=== PATIENT | male | born 1940 | race Caucasian/White ===

== ENCOUNTER → 2016-11-29 | Day surgery (SDC) | payer MEDICARE ==
[~2016-11-29] MED LIST: ASPI1TAB69 PO; ASPI81 PO; BUPIVACAINE/EPINEPHRINE 0.25% 50 ML VIAL ONE; CIPR500T2 PO; DICLOFENAC SODIUM 37.5 MG/ML VIAL IV PUSH ONE; GLIP5 PO; GLUCTAB PO; LACTATED RINGER'S 1000 ML INJ 1,000 ML ONE; LEVO125T4 PO; LEVO175T2 PO; LOVA20TA PO; METF500T4 PO; METO50TA PO; ONDANSETRON HCL 4 MG/2 ML VIAL IV PUSH ONE; PROPOFOL 200 MG/20 ML AMP IV ONE; TAMS0.4C4 PO; TAMS0.4C67 PO; ceFAZolin 2 GM PREMIX 50 ML ONE
--- NOTE | 2016-11-29 10:38 | TN ---
cc: THERESE ALLEN M.D. DATE OF SURGERY: 11/29/2016 PREOPERATIVE DIAGNOSIS Left indirect inguinal hernia. POSTOPERATIVE DIAGNOSIS 1. Left indirect inguinal hernia. 2. Incarcerated colon. 3. Spermatic cord lipoma. PROCEDURE 1. Open repair left inguinal hernia with mesh. 2. Excision spermatic cord lipoma. SURGEON Dr. Therese Allen KNIFE CUTTER Peg Blanchard, FORMULATOR ANESTHESIA General. INDICATIONS This is a very pleasant 76-year-old gentleman who has a longstanding large left inguinal hernia. It creates pain intermittently. 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 A CT scan demonstrated a large left inguinal hernia including colon. INTRAOPERATIVE FINDINGS Large spermatic cord lipoma. Large thickened and chronic indirect inguinal hernia sac involving the colon. The colon had to be mobilized out of the sac to reduce it and a pursestring suture was placed at the base of the hernia sac and redundant sac amputated. Spermatic cord lipoma hernia sac discarded. ESTIMATED BLOOD LOSS Less than 20 mL. This procedure was assisted by my nurse practitioner. The skill set of an FORMULATOR was medically necessary to provide appropriate visualization of the operative field and improved efficiency in the progress of the surgical procedure. The surgical aides teacher was at the back table providing appropriate instrumentation while the nurse practitioner was directly assisting me through the entirety of the procedure. DESCRIPTION OF PROCEDURE IN DETAIL The patient was identified as Derick Lin, taken to the operating room and placed in supine position. Sequential compression devices were placed on bilateral lower extremities. Following induction of adequate general anesthesia the patient's left groin was prepped and draped in the usual sterile fashion with Betadine. A timeout procedure was performed. Following completion of the timeout procedure to everyone's satisfaction within the room, a proposed left groin incision was made with a marking pen and infiltrated with local anesthetic. The incision was carried out with a scalpel and hemostasis controlled with electrocautery. Dissection continued posteriorly through Telly's fascia to the level of the external oblique fascia. More local anesthetic was placed beneath the external oblique fascial fibers. They were opened in their direction using a scalpel and Metzenbaum scissor. Underlying ilioinguinal and iliohypogastric nerves were avoided after identifying them. The spermatic cord and its contents were from surrounding tissues to the level of the pubic tubercle and isolated with a [place] drain. A large chronic indirect inguinal hernia sac and a chronically incarcerated spermatic cord lipoma were reduced from the spermatic cord structures. The spermatic cord lipoma at its base was clamped with two separate clamps and redundant tissue amputated with electrocautery. The base of the spermatic cord lipoma was suture ligated with 2-0 Vicryl suture ligatures. The hernia sac was then opened, incarcerated colon was identified. It was carefully reduced down back into the peritoneal cavity. Small bleeding points were controlled with cautery and at one point a 3-0 Vicryl suture ligature was used to control a small amount of bleeding. The colon was uninjured. The bottom of the hernia sac was pursestring suture ligated with 2-0 Vicryl suture ligature and redundant sac amputated and discarded. The wound was irrigated copiously with saline. There was no evidence of bleeding. The inguinal floor was reinforced with a piece of Atrium ProLite mesh which was cut from a 3 x 6 inch piece, customized in size and sutured into position with multiple interrupted 0 Ethibond sutures. Sutures were placed above and below the pubic tubercle into Cecilio's ligament and the shelving edge of the inguinal ligament inferiorly and laterally and into the internal oblique fascia superiorly and medially. Specific care was taken to avoid a iliohypogastric nerve branch superiorly. A slit was cut into the mesh laterally to allow for passage of the spermatic cord which was allowed to pass through the mesh and the mesh tails were tucked beneath the external oblique fascia. A single Ethibond suture was placed to approximate the tails lateral to the spermatic cord. The wound was irrigated with saline. There was no evidence of bleeding. Local anesthetic was placed in the operative field. The external oblique fascia was closed using running 3-0 Vicryl suture taking care to avoid underlying nerve branches. Single 2-0 Vicryl was placed in Telly's fascia and skin was approximated with running 4-0 Monocryl subcuticular suture. Dressings were applied with Mastisol, half-inch brown Steri-Strips, gauze and Tegaderm. The patient tolerated the procedure without apparent complication. Sponge, needle and instrument counts were correct at the end of the case. MD FLORY Velázquez/AUNDREA /9:11 AM /10:24 AM
== END | disposition home or self-care (01) ==
LOC: ESDC 06:27
PROVIDERS: ATTEND Surgery Trauma Surgery
DX: K40.90 Unilateral inguinal hernia, without obstruction or gangrene, not specified as recurrent (principal); D17.6 Benign lipomatous neoplasm of spermatic cord
CPT/HCPCS: 00830; 49505; 55520; C1781; J0690; J1130; J2405; J3010; J7120

== ENCOUNTER 2016-12-15 20:55 | Emergency (ER) | payer MEDICARE ==
[~2016-12-15] VITALS: Ht 170.2 cm; Wt 64.8 kg
[~2016-12-15 20:55] MED LIST changes: -ASPI1TAB69 PO; -BUPIVACAINE/EPINEPHRINE 0.25% 50 ML VIAL ONE; -CIPR500T2 PO; -DICLOFENAC SODIUM 37.5 MG/ML VIAL IV PUSH ONE; -LACTATED RINGER'S 1000 ML INJ 1,000 ML ONE; -LEVO125T4 PO; -METF500T4 PO; -ONDANSETRON HCL 4 MG/2 ML VIAL IV PUSH ONE; -PROPOFOL 200 MG/20 ML AMP IV ONE; -TAMS0.4C4 PO; -ceFAZolin 2 GM PREMIX 50 ML ONE
[2016-12-15 21:12] VITALS: BP 159/74; PULSE 70; RESP 16; TEMP 98.6; O2SAT 98
[2016-12-15 22:25] LABS: GLUCOSE,URINE NEG (NEG); KETONE, URINE TRACE mg/dL (NEG); NITRITE,URINE NEG (NEG)
[2016-12-15 22:43] LABS: BLOOD, URINE MOD (NEG)
[2016-12-15 22:44] LABS: MUCUS URINE MANY /lpf (OCC); URINE COLOR YELLOW (YELLW/STRAW)
[2016-12-15 22:45] LABS: SQUAMOUS EPITHELIAL CELL URINE 0-5 /hpf (0-5)
[2016-12-15 22:46] LABS: BACTERIA, URINE RARE /hpf; COMMENT (UR) CULTURE INDICATED; CULTURE IF INDICATED CULTURE INDICATED
[2016-12-15] MEDS ORDERED: METF500T4 PO (23:49)
[2016-12-15] MEDS ORDERED: ASPI1TAB69 PO (23:49)
[2016-12-15] MEDS ORDERED: TAMS0.4C4 PO (23:49)
[2016-12-15] MEDS ORDERED: METO50TA PO (23:49)
[2016-12-15] MEDS ORDERED: LEVO125T4 PO (23:49)
[2016-12-15] MEDS ORDERED: LOVA20TA PO (23:49)
[2016-12-16 00:20] VITALS: BP 152/74; PULSE 78; RESP 18; O2SAT 96
[2016-12-16] MEDS ORDERED: CIPR500T2 PO (00:37)
--- NOTE | 2016-12-16 00:38 | PD ---
HPI Chief Complaint: Complaint Time Seen by Provider: 23:42 Travel History International Travel<30 days: No Contact w/Intl Traveler<30days: No Traveled to known affect area: No History of Present Illness HPI Patient is a 76-year-old male presents emergency Department with suprapubic discomfort. Patient states approximate 2 weeks ago he had a hernia repair in his left inguinal region by Dr. Peres. Patient states she's been doing fairly well afterwards no fevers no diarrhea no blood in the stool tolerating oral well. He does relate a history of weight loss currently and has been worked up by his primary care physician with MRI and CAT scan and no cause to his weight loss has been determined. It was at this workup the patient was discovered to have a strangulated hernia and that is why he had repair. Patient also relates a history of unable to urinate for the past day. He states she's had a dribble alone but it davis when he urinates. Denies any fever. Denies any nausea or vomiting chest pain shortness of breath or extremity pain. PFSH Past Medical History Hx Anticoagulant Therapy: Yes (81 MG ASA) Arthritis: Yes Asthma: No Blood Disorders: No Heart Rhythm Problems: No Cancer: No Cardiac Catheterization: No Cardiovascular Problems: No High Cholesterol: Yes Chest Pain: No Congestive Heart Failure: No COPD: No Cerebrovascular Accident: No Diabetes: Yes Patient Takes Glucophage: Yes Diminished Hearing: No Endocrine: Yes GERD: No Genitourinary: Yes (BPH) Headaches: No Hepatitis: No Hiatal Hernia: No Hypertension: Yes Immune Disorder: No Inguinal Hernia: Yes (l hernia repair on nov 29 2016) Kidney Stones: No Musculoskeletal: Yes (ARTHRITIS, SP. STENOSIS) Neurologic: No Psychiatric: No Reproductive: No Respiratory: No Immunizations Current: Yes Migraines: No Myocardial Infarction: No Renal Failure: No Seizures: No Sleep Apnea: No Thyroid Disease: Yes (NODULES REM'D) Ulcer: No Tetanus Vaccination: > 5 Years Influenza Vaccination: No Past Surgical History Abdominal Surgery: No AICD: No Appendectomy: No Cardiac Surgery: No Cholecystectomy: No Coronary Artery Bypass Graft: No Ear Surgery: No Endocrine Surgery: Yes (THYROIDECTOMY) Eye Surgery: No Genitourinary Surgery: No Gynecologic Surgery: No Joint Replacement: Yes (LEFT KNEE) Oral Surgery: No Pacemaker: No Thoracic Surgery: No Other Surgery: Yes Social History Alcohol Use: Yes (occ) Tobacco Use: No Substance Use: No Allergies-Medications (Allergen,Severity, Reaction): Coded Allergies: No Known Allergies (Verified , 12/15/16) Reported Meds & Prescriptions Reported Meds & Active Scripts Active Ciprofloxacin (Ciprofloxacin HCl) 500 Mg Tab 500 Mg PO BID 7 Days Reported Metoprolol Tartrate 50 Mg Tab 50 Mg PO BID Metformin ER (Metformin HCl) 500 Mg Sabrina 500 Mg PO DAILY With evening meal Tamsulosin (Tamsulosin HCl) 0.4 Mg Cap 0.4 Mg PO HS Levothyroxine (Levothyroxine Sodium) 125 Mcg Tab 125 Mcg PO DAILY Lovastatin 20 Mg Tab 20 Mg PO HS Aspirin 81 Mg Tabdr 81 Mg PO DAILY Review of Systems Except as stated in HPI: all other systems reviewed are Neg Physical Exam Narrative GENERAL: [Well-developed well-nourished, no apparent distress SKIN: Focused skin assessment warm/dry. HEAD: Atraumatic. Normocephalic. EYES: Pupils equal and round. No scleral icterus. No injection or drainage. ENT: No nasal bleeding or discharge. Mucous membranes pink and moist. Extremely poor dentition NECK: Trachea midline. No JVD. CARDIOVASCULAR: Regular rate and rhythm. No murmur appreciated. RESPIRATORY: No accessory muscle use. Clear to auscultation. Breath sounds equal bilaterally. GASTROINTESTINAL: Abdomen soft, minimal suprapubic tenderness, suprapubic distention. Hepatic and splenic margins not palpable. MUSCULOSKELETAL: No obvious deformities. No clubbing. No cyanosis. No edema. NEUROLOGICAL: Awake and alert. No obvious cranial nerve deficits. Motor grossly within normal limits. Normal speech. PSYCHIATRIC: Appropriate mood and affect; insight and judgment normal. Data Data Last Documented VS Vital Signs Date Time Temp Pulse Resp B/P Pulse Ox O2 Delivery O2 Flow Rate FiO2 12/16/16 02:02 64 18 126/52 97 12/16/16 00:20 Room Air 12/15/16 21:12 98.6 Orders Urinalysis - C+S If Indicated (12/15/16 21:04) Urine Culture (12/15/16 22:16) Ed Poc Ultrasound (12/15/16 ) Basic Metabolic Panel (Bmp) (12/15/16 23:51) Ciprofloxacin (Cipro) (12/16/16 01:00) Bag, Leg 32oz Sterile Large Ea (12/16/16 00:52) Urinary Catheter Insert/Apply (12/16/16 01:23) Labs Laboratory Tests Test 12/15/16 12/16/16 22:16 00:04 Urine Color YELLOW Urine Turbidity CLEAR Urine pH 6.0 Urine Specific [place] 1.020 Urine Protein TRACE mg/dL Urine Glucose (UA) NEG mg/dL Urine Ketones TRACE mg/dL Urine Occult Blood MOD Urine Nitrite NEG Urine Bilirubin NEG Urine Leukocyte Esterase TRACE Urine RBC 4-9 /hpf Urine WBC 20-24 /hpf Urine WBC Clumps FEW Urine Squamous Epithelial 0-5 /hpf Cells Urine Bacteria RARE /hpf Urine Mucus MANY /lpf Microscopic Urinalysis Comment CULTURE INDICATED Sodium Level 137 MEQ/L Potassium Level 4.0 MEQ/L Chloride Level 102 MEQ/L Carbon Dioxide Level 27.6 MEQ/L Anion Gap 7 MEQ/L Blood Urea Nitrogen 19 MG/DL Creatinine 0.76 MG/DL Estimat Glomerular Filtration 100 ML/MIN Rate Random Glucose 164 MG/DL Calcium Level 8.7 MG/DL MDM Medical Decision Making Medical Screen Exam Complete: Yes Emergency Medical Condition: Yes Differential Diagnosis Acute urinary retention, acute kidney injury, urinary tract infection. Narrative Course Patient was roomed in the emergency department, bedside ultrasound confirms urinary retention. A Morfin catheter was placed by nursing and immediately had a liter of urine out. The urine was clear. Fully catheter was clamped to help to prevent bladder spasm. The patient instantly felt better after this liter of urine was drained. UA does show evidence for urinary tract infection. A BMP was sent and shows a creatinine which is within normal limits. Discussed the patient symptomatically management need follow-up with a urologist. He will be discharged with leg bag in place. Recommend follow-up with urologist within a week. Also recommended following up with his primary care physician. He is stable for discharge at this time. Procedures Procedure Narrative Bedside ultrasound: Bedside ultrasound views were obtained of the bladder which shows just over a liter of urine in the bladder. No other gross abnormalities. Diagnosis Primary Impression: Urinary retention Additional Impression: Urinary tract infection Referrals: Fawad Ruth DO Med/Other Pt SpecificInfo: Prescription(s) given Scripts Ciprofloxacin 500 Mg [id number] Mg PO BID 7 Days Ref 0 Prov:Fabrice Atkins MD 12/16/16 Disposition: 01 DISCHARGE HOME Condition: Stable Fabrice Atkins MD Dec 16, 2016 00:37
[2016-12-16 00:41] LABS: BICARBONATE 27.6 MEQ/L (21.0-32.0)
[2016-12-16] MEDS ORDERED: CIPROFLOXACIN 500 MG TAB PO ONE (01:00)
[2016-12-16 02:02] VITALS: BP 126/52
== END 2016-12-16 02:03 | disposition home or self-care (01) ==
LOC: PHED 20:55
DX: R33.9 Retention of urine, unspecified (principal); N39.0 Urinary tract infection, site not specified; R30.0 Dysuria; I10 Essential (primary) hypertension; E11.9 Type 2 diabetes mellitus without complications; E07.9 Disorder of thyroid, unspecified; E78.00 Pure hypercholesterolemia, unspecified; Z98.890 Other specified postprocedural states; Z79.82 Long term (current) use of aspirin; Z79.84 Long term (current) use of oral hypoglycemic drugs; Z87.39 Personal history of other diseases of the musculoskeletal system and connective tissue; Z87.438 Personal history of other diseases of male genital organs
CPT/HCPCS: 51702; 80048; 81001; 87086

== ENCOUNTER 2016-12-31 19:44 | Emergency (ER) | payer MEDICARE ==
[~2016-12-31] VITALS: Ht 170.2 cm; Wt 64.4 kg
[~2016-12-31 19:44] MED LIST changes: +ASPI1TAB69 PO; -ASPI81 PO; +CIPR500T2 PO; -GLIP5 PO; -GLUCTAB PO; +LEVO125T4 PO; -LEVO175T2 PO; +METF500T4 PO; +TAMS0.4C4 PO; -TAMS0.4C67 PO
[2016-12-31 19:57] VITALS: BP 122/50; PULSE 53; RESP 16; TEMP 98.2; O2SAT 100
--- NOTE | 2016-12-31 20:18 | PD ---
HPI Chief Complaint: Complaint Time Seen by Provider: 20:15 Travel History International Travel<30 days: No Contact w/Intl Traveler<30days: No Traveled to known affect area: No History of Present Illness HPI This 76-year-old male is complaining of hematuria. He has a history of urinary retention. He was here on December 15 with urinary retention. He was discharged with an indwelling Morfin. He has followed up with Dr. Coffey. This catheter has been removed and his is instructed in how to catheterize him. She noted some blood in the urine earlier today. Tonight he had some trouble urinating and had blood again. He is not on any blood thinner. He does take aspirin daily. He is scheduled for a cystoscopy next week PFS Past Medical History Hx Anticoagulant Therapy: Yes (81 MG ASA) Arthritis: Yes Asthma: No Blood Disorders: No Heart Rhythm Problems: No Cancer: No Cardiac Catheterization: No Cardiovascular Problems: No High Cholesterol: Yes Chest Pain: No Congestive Heart Failure: No COPD: No Cerebrovascular Accident: No Diabetes: Yes Diminished Hearing: No Endocrine: Yes GERD: No Genitourinary: Yes (BPH) Headaches: No Hepatitis: No Hiatal Hernia: No Hypertension: Yes Immune Disorder: No Inguinal Hernia: Yes (l hernia repair on nov 29 2016) Kidney Stones: No Musculoskeletal: Yes (ARTHRITIS, SP. STENOSIS) Neurologic: No Psychiatric: No Reproductive: No Respiratory: No Immunizations Current: Yes Migraines: No Myocardial Infarction: No Renal Failure: No Seizures: No Sleep Apnea: No Thyroid Disease: Yes (NODULES REM'D) Ulcer: No Past Surgical History Abdominal Surgery: No AICD: No Appendectomy: No Cardiac Surgery: No Cholecystectomy: No Coronary Artery Bypass Graft: No Ear Surgery: No Endocrine Surgery: Yes (THYROIDECTOMY) Eye Surgery: No Genitourinary Surgery: No Gynecologic Surgery: No Joint Replacement: Yes (LEFT KNEE) Oral Surgery: No Pacemaker: No Thoracic Surgery: No Other Surgery: Yes Social History Alcohol Use: Yes (occ) Tobacco Use: No Substance Use: No Allergies-Medications (Allergen,Severity, Reaction): Coded Allergies: No Known Allergies (Verified , 12/31/16) Reported Meds & Prescriptions Reported Meds & Active Scripts Active Reported Metoprolol Tartrate 50 Mg Tab 50 Mg PO BID Metformin ER (Metformin HCl) 500 Mg Sabrina 500 Mg PO DAILY With evening meal Tamsulosin (Tamsulosin HCl) 0.4 Mg Cap 0.4 Mg PO HS Levothyroxine (Levothyroxine Sodium) 125 Mcg Tab 125 Mcg PO DAILY Lovastatin 20 Mg Tab 20 Mg PO HS Aspirin 81 Mg Tabdr 81 Mg PO DAILY Review of Systems General / Constitutional: No: Fever, Chills Eyes: No: Diploplia, Blurred Vision HENT: No: Headaches, Vertigo Cardiovascular: No: Chest Pain or Discomfort Respiratory: No: Cough, Shortness of Breath Gastrointestinal: No: Vomiting, Diarrhea Genitourinary: Positive: Frequency, Hematuria, Dribbling Physical Exam Narrative GENERAL: Well-developed male SKIN: Focused skin assessment warm/dry. HEAD: Atraumatic. Normocephalic. EYES: Pupils equal and round. No scleral icterus. No injection or drainage. ENT: No nasal bleeding or discharge. Mucous membranes pink and moist. NECK: Trachea midline. No JVD. CARDIOVASCULAR: Regular rate and rhythm. No murmur appreciated. RESPIRATORY: No accessory muscle use. Clear to auscultation. Breath sounds equal bilaterally. GASTROINTESTINAL: Abdomen soft, non-tender, nondistended. Hepatic and splenic margins not palpable. There is some suprapubic fullness MUSCULOSKELETAL: No obvious deformities. No clubbing. No cyanosis. No edema. NEUROLOGICAL: Awake and alert. No obvious cranial nerve deficits. Motor grossly within normal limits. Normal speech. PSYCHIATRIC: Appropriate mood and affect; insight and judgment normal. Data Data Last Documented VS Vital Signs Date Time Temp Pulse Resp B/P Pulse Ox O2 Delivery O2 Flow Rate FiO2 12/31/16 21:34 50 18 126/61 99 Room Air 12/31/16 19:57 98.2 Orders Urinalysis - C+S If Indicated (12/31/16 20:15) Cath For Specimen (12/31/16 20:15) Urine Culture (12/31/16 20:30) Complete Blood Count With Diff (12/31/16 20:59) Basic Metabolic Panel (Bmp) (12/31/16 20:59) Prothrombin Time / Inr (Pt) (12/31/16 20:59) Act Partial Throm Time (Ptt) (12/31/16 20:59) Labs Laboratory Tests Test 12/31/16 12/31/16 20:30 21:10 Urine Color RED Urine Turbidity MARKED Urine pH 6.5 Urine Specific [place] 1.014 Urine Protein 300 OR GREATER mg/dL Urine Glucose (UA) NEG mg/dL Urine Ketones TRACE mg/dL Urine Occult Blood LARGE Urine Nitrite POS Urine Bilirubin NEG Urine Leukocyte Esterase TRACE Urine RBC INNUM /hpf Urine WBC 3-5 /hpf Microscopic Urinalysis Comment CULTURE INDICATED White Blood Count 7.3 TH/MM3 Red Blood Count 3.66 MIL/MM3 Hemoglobin 10.9 GM/DL Hematocrit 32.4 % Mean Corpuscular Volume 88.7 FL Mean Corpuscular Hemoglobin 29.8 PG Mean Corpuscular Hemoglobin 33.6 % Concent Red Cell Distribution Width 13.5 % Platelet Count 204 TH/MM3 Mean Platelet Volume 7.9 FL Neutrophils (%) (Auto) 57.8 % Lymphocytes (%) (Auto) 23.8 % Monocytes (%) (Auto) 13.6 % Eosinophils (%) (Auto) 4.2 % Basophils (%) (Auto) 0.6 % Neutrophils # (Auto) 4.3 TH/MM3 Lymphocytes # (Auto) 1.7 TH/MM3 Monocytes # (Auto) 1.0 TH/MM3 Eosinophils # (Auto) 0.3 TH/MM3 Basophils # (Auto) 0.0 TH/MM3 CBC Comment DIFF FINAL Differential Comment Sodium Level 141 MEQ/L Potassium Level 3.9 MEQ/L Chloride Level 105 MEQ/L Carbon Dioxide Level 30.0 MEQ/L Anion Gap 6 MEQ/L Blood Urea Nitrogen 26 MG/DL Creatinine 0.98 MG/DL Estimat Glomerular Filtration 74 ML/MIN Rate Random Glucose 97 MG/DL Calcium Level 8.5 MG/DL MDM Medical Decision Making Medical Screen Exam Complete: Yes Emergency Medical Condition: Yes Medical Record Reviewed: Yes Differential Diagnosis Differential includes hematuria, anemia, urinary retention Narrative Course Catheter was inserted and there is a large amount of urine which is bloody. There are only 3 white cells in the urine. His hemoglobin is 10.9. He is stable for discharge. I recommend that we leave the catheter in and would not do the intermittent catheterization that may have contributed to the hematuria. He is to follow-up with Diagnosis Primary Impression: Hematuria Additional Impression: Urinary retention Referrals: Ted Coffey MD Disposition: 01 DISCHARGE HOME Condition: Stable Ryan Myers MD December 31, 2016 20:17
[2016-12-31 20:49] LABS: BLOOD, URINE LARGE (NEG); GLUCOSE,URINE NEG (NEG); KETONE, URINE TRACE mg/dL (NEG); PH, URINE 6.5 (5.0-8.5)
[2016-12-31 20:52] LABS: NITRITE,URINE POS (NEG); URINE COLOR RED (YELLW/STRAW)
[2016-12-31 20:53] LABS: COMMENT (UR) CULTURE INDICATED; CULTURE IF INDICATED CULTURE INDICATED; RBC, URINE INNUM /hpf (0-3)
[2016-12-31 21:16] LABS: AUTOMATED NEUTROPHIL # 4.3 TH/MM3 (1.8-7.7); BASOPHIL % 0.6 % (0.0-2.0); EOSINOPHIL # 0.3 TH/MM3 (0-0.4); EOSINOPHIL % 4.2 % (0.0-4.0); HEMATOCRIT 32.4 % (39.0-51.0); HEMO FLAGS DIFF FINAL; LYMPH % 23.8 % (9.0-44.0); LYMPHOCYTE # 1.7 TH/MM3 (1.0-4.8); MEAN CELL VOLUME 88.7 FL (80.0-100.0); MEAN CORPUSCULAR HEMOGLOBIN 29.8 PG (27.0-34.0); MEAN CORPUSCULAR HGB CONC 33.6 % (32.0-36.0); MONO % 13.6 % (0.0-8.0); NEUT % 57.8 % (16.0-70.0); PLATELET COUNT 204 TH/MM3 (150-450); RED BLOOD COUNT 3.66 MIL/MM3 (4.50-5.90); RED CELL DISTRIBUTION WIDTH 13.5 % (11.6-17.2); WHITE BLOOD COUNT 7.3 TH/MM3 (4.0-11.0)
[2016-12-31 21:32] LABS: POTASSIUM 3.9 MEQ/L (3.5-5.1)
[2016-12-31 21:34] VITALS: BP 126/61; PULSE 50; RESP 18; O2SAT 99
[2016-12-31 22:07] LABS: APTT (PATIENT) 28.2 SEC (24.3-30.1); PROTHROMBIN TIME - PATIENT 11.6 SEC (9.8-11.6)
== END 2016-12-31 22:12 | disposition home or self-care (01) ==
LOC: PHED 19:44
DX: R31.9 Hematuria, unspecified (principal); R33.9 Retention of urine, unspecified; B95.7 Other staphylococcus as the cause of diseases classified elsewhere; E11.9 Type 2 diabetes mellitus without complications; E07.9 Disorder of thyroid, unspecified; I10 Essential (primary) hypertension; E78.00 Pure hypercholesterolemia, unspecified; Z79.84 Long term (current) use of oral hypoglycemic drugs; Z79.82 Long term (current) use of aspirin; Z87.39 Personal history of other diseases of the musculoskeletal system and connective tissue; Z87.438 Personal history of other diseases of male genital organs
CPT/HCPCS: 80048; 81001; 85025; 85610; 85730; 86403; 87077; 87086; 87186; 99283; P9612

== ENCOUNTER 2018-07-13 09:21 | Inpatient (IN) ==
[2018-07-13] MEDS ORDERED: Acetaminophen 325 MG Tablet PO ONE (09:59)
--- NOTE | 2018-07-13 09:59 | ED ---
HPI General Chief Complaint: Altered Mental Status Stated Complaint: AMS Time Seen by Provider: 07/13/18 09:36 Source: patient Mode of arrival: EMS Limitations: no limitations and altered mental status History of Present Illness HPI narrative: Patient is a 78-year-old male who presents the emergency room for evaluation of altered mental status. As per EMS, they woke up this morning around 4- 5 AM and patient was not acting like his normal self. Reports concerns as normally he is ambulatory with a cane, reports that this morning, he was not able to ambulate. reported that patient appeared confused so she called for help. Patient currently with no neurological deficits, patient is alert only to person -patient is unsure why he is in the emergency room. Patient with no complaints in the emergency room. Patient denies any headache or dizziness, denies any chest pain or shortness of breath, denies any abdominal pain, denies any nausea or vomiting. Related Data Allergies Allergy/AdvReac Type Severity Reaction Status Date / Time No Known Allergies Allergy Uncoded 12/31/16 20:11 Review of Systems ROS: all other systems reviewed are negative PMFSH History History Provided By: Field Marketing Coordinator / EMT Medical History Medical History CHF (congestive heart failure) (Acute) Diabetes (Acute) High cholesterol (Acute) Hypertension (Acute) Left bundle branch block (LBBB) (Acute) Suprapubic catheter (Acute) Thyroid disease (Acute) Social History Social History Substance History: No History of Abuse Smoking Status: Former smoker Tobacco Type: Cigarettes How Often Do You Have a Drink Containing Alcohol: Never Exam Narrative Exam Narrative: GENERAL: Moderate distressed, confused SKIN: Focused skin assessment warm/dry. Pale appearing HEAD: Atraumatic. Normocephalic. EYES: Pupils equal and round. No scleral icterus. No injection or drainage. ENT: No nasal bleeding or discharge. Mucous membranes pink and moist. NECK: Trachea midline. No JVD. CARDIOVASCULAR: Regular rate and rhythm. No murmur appreciated. RESPIRATORY: No accessory muscle use. Clear to auscultation. Breath sounds equal bilaterally. GASTROINTESTINAL: Abdomen soft, non-tender, nondistended. Hepatic and splenic margins not palpable. Patient has a suprapubic tube in place draining cloudy urine Rectal exam: performed with RN at bedside - patient with dark tarry stools - heme positive MUSCULOSKELETAL: No obvious deformities. No clubbing. No cyanosis. +2 edema b/ l NEUROLOGICAL: Awake and alert. Normal speech. Patient is unable to follow commands for full neurological exam. PSYCHIATRIC: Appropriate mood and affect; insight and judgment normal. Course Initial Documented Vital Signs Temperature 100.8 F H 07/13/18 09:43 Pulse Rate 82 07/13/18 09:43 Respiratory Rate 20 07/13/18 09:43 Blood Pressure 132/61 07/13/18 09:43 Pulse Oximetry 100 07/13/18 09:43 Last Documented Vital Signs Temperature 100.8 F H 07/13/18 09:43 Pulse Rate 82 07/13/18 09:43 Respiratory Rate 20 07/13/18 09:43 Blood Pressure 132/61 07/13/18 09:43 Pulse Oximetry 100 07/13/18 10:22 Critical Care Time Critical Care Time: Yes Total Critical Care Time: 30 Attestation: Aggregate critical care time was 30 minutes. Time to perform other separately billable procedures was not included in the critical care time. My time did not include minutes spent treating any other patients simultaneously or on activities that did not directly contribute to the patient's treatment. The services I provided to this patient were to treat and/or prevent clinically significant deterioration that could result in: , decompensation, deteriortaion I provided critical care services requiring my management, as noted below: Chart data review, documentation time, medication orders and management, vital sign assessments/reviewing monitor data, ordering and reviewing lab tests, ordering and interpreting/reviewing x-rays and diagnostic studies, care of the patient and discussion of the patient with the admitting physicians. Medical Decision Making MDM Narrative Medical decision making narrative: During the course of the patients emergency department visit, the patients history, examination, and differential diagnosis were reviewed with the patient. The patient was placed on a threat monitoring analyst with oximetry and frequent blood pressure monitoring. The patient had an IV access obtained and blood work sent for analysis. The patient was initially provided IV fluids as well as acetaminophen as his temperature is 100.8. The patients laboratory studies were reviewed and remarkable for wbc 21.7, patient is also febrile with a temperature of 100.8. A sepsis workup was initiated. Patient was given vancomycin as well as a dose of Zosyn Patient also with a hemoglobin of 3.7, he is heme positive below with dark tarry stools. reports that patient had a colonoscopy about 4 years ago which showed colon polyps. Understands that patient will require admission to the hospital for workup of GI bleed with SIRS. Plan to start Protonix drip with Protonix bolus. Case reviewed with Dr. Wu who accepts pt to service Medical Screen Exam Complete: Yes Emergency Medical Condition: Yes Medical Records Medical records reviewed: Yes I reviewed the patient's medical records. Lab Data Result diagrams: 07/13/18 10:05 07/13/18 10:05 Lab Results 07/13/18 07/13/18 07/13/18 Range/Units 09:37 10:05 10:05 WBC 21.7 H (4.0-11.0) th/mm3 RBC 1.15 L (4.50-5.90) mil/mm3 Hgb 3.7 L* (13.0-17.0) gm/dL Hct 11.2 L* (39.0-51.0) % MCV 97.2 (80.0-100.0) fL MCH 32.4 (27.0-34.0) pg MCHC 33.3 (32.0-36.0) % RDW 15.0 (11.6-17.2) % Plt Count 283 (150-450) th/mm3 MPV 8.9 (7.0-11.0) fL Prelim Diff (Auto) Slide review pending Neut % (Auto) 87.4 H (16.0-70.0) % Lymph % (Auto) 7.2 L (9.0-44.0) % Bertie % (Auto) 5.3 (0.0-8.0) % Eos % (Auto) 0.0 (0.0-4.0) % Baso % (Auto) 0.1 (0.0-2.0) % Neut # (Auto) 19.0 H (1.8-7.7) th/mm3 Lymph # (Auto) 1.6 (1.0-4.8) th/mm3 Bertie # (Auto) 1.2 H (0.0-0.9) th/mm3 Eos # (Auto) 0.0 (0.0-0.4) th/mm3 Baso # (Auto) 0.0 (0.0-0.2) th/mm3 Differential Comment . PT 12.3 H (9.8-11.6) sec INR 1.2 Ratio APTT 20.5 L (23.4-31.7) sec Sodium (136-145) meq/L Potassium (3.5-5.1) meq/L Chloride (98-107) meq/L Carbon Dioxide (21.0-32.0) meq/L Anion Gap (5-15) meq/L BUN (7-18) mg/dL Creatinine (0.60-1.30) mg/dL Estimated GFR (>89) mL/min POC Glucose 244 H (68-110) mg/dl Random Glucose (74-106) mg/dL Calcium (8.5-10.1) mg/dL Magnesium (1.5-2.5) mg/dL Total Bilirubin (0.2-1.0) mg/dL AST (15-37) U/L ALT (12-78) U/L Alkaline Phosphatase (45-117) U/L Troponin I (0.02-0.05) ng/mL Total Protein (6.4-8.2) g/dL Albumin (3.4-5.0) g/dL MTS Gel Crossmatch 07/13/18 07/13/18 Range/Units 10:05 10:20 WBC (4.0-11.0) th/mm3 RBC (4.50-5.90) mil/mm3 Hgb (13.0-17.0) gm/dL Hct (39.0-51.0) % MCV (80.0-100.0) fL MCH (27.0-34.0) pg MCHC (32.0-36.0) % RDW (11.6-17.2) % Plt Count (150-450) th/mm3 MPV (7.0-11.0) fL Prelim Diff (Auto) Neut % (Auto) (16.0-70.0) % Lymph % (Auto) (9.0-44.0) % Bertie % (Auto) (0.0-8.0) % Eos % (Auto) (0.0-4.0) % Baso % (Auto) (0.0-2.0) % Neut # (Auto) (1.8-7.7) th/mm3 Lymph # (Auto) (1.0-4.8) th/mm3 Bertie # (Auto) (0.0-0.9) th/mm3 Eos # (Auto) (0.0-0.4) th/mm3 Baso # (Auto) (0.0-0.2) th/mm3 Differential Comment PT (9.8-11.6) sec INR Ratio APTT (23.4-31.7) sec Sodium 141 (136-145) meq/L Potassium 4.2 (3.5-5.1) meq/L Chloride 107 (98-107) meq/L Carbon Dioxide 22.9 (21.0-32.0) meq/L Anion Gap 11 (5-15) meq/L BUN 76 H (7-18) mg/dL Creatinine 1.21 (0.60-1.30) mg/dL Estimated GFR 58 L (>89) mL/min POC Glucose (68-110) mg/dl Random Glucose 230 H (74-106) mg/dL Calcium 8.1 L (8.5-10.1) mg/dL Magnesium 2.0 (1.5-2.5) mg/dL Total Bilirubin 0.2 (0.2-1.0) mg/dL AST 13 L (15-37) U/L ALT 14 (12-78) U/L Alkaline Phosphatase 35 L (45-117) U/L Troponin I Less than 0.02 L (0.02-0.05) ng/mL Total Protein 5.8 L (6.4-8.2) g/dL Albumin 2.9 L (3.4-5.0) g/dL MTS Gel Crossmatch See Detail Imaging Data Radiologist's impression: Head CT 07/13/18 09:37 CONCLUSION: 1. No acute intracranial abnormalities seen. 2. Widespread decreased density in the cerebral white matter likely from underlying small vessel ischemic demyelination. . ECG Data EKG Prior to Arrival: No Attestation: I personally reviewed and interpreted this ECG as follows: Interpretation: EKG at 0942 shows normal sinus rhythm at 89 QTQTC 398/445, no acute ST-T wave changes, he does have a left bundle branch block Discharge Plan Discharge Disposition Patient Disposition: 30 Still Patient Discharge Condition Condition: Serious Discharge Details Diagnosis: GI (gastrointestinal bleed), Anemia Physicians Team ED Provider: Prachi White Status ED Status: With Doctor
[2018-07-13 10:22] LABS: Baso % (Auto) 0.1 % (0.0-2.0); Lymph # (Auto) 1.6 th/mm3 (1.0-4.8); Lymph % (Auto) 7.2 % (9.0-44.0); Mean Corpuscular HGB Conc 33.3 % (32.0-36.0); Mean Corpuscular Hemoglobin 32.4 pg (27.0-34.0); Mean Corpuscular Volume 97.2 fL (80.0-100.0); Mean Platelet Volume 8.9 fL (7.0-11.0); Mono # (Auto) 1.2 th/mm3 (0.0-0.9); Mono % (Auto) 5.3 % (0.0-8.0); Neut % (Auto) 87.4 % (16.0-70.0); Platelet Count 283 th/mm3 (150-450); Red Blood Count 1.15 mil/mm3 (4.50-5.90); White Blood Count 21.7 th/mm3 (4.0-11.0)
--- NOTE | 2018-07-13 10:28 | CT ---
EXAM DATE: 07/13/2018 10:22 AM EST AGE/SEX: 78 years / Male INDICATIONS: Altered mental status. CLINICAL DATA: This is the patient's initial encounter. Patient reports that signs and symptoms have been present for 1 day and indicates a pain score of 0/10. MEDICAL/SURGICAL HISTORY: None. None. RADIATION DOSE: 56.35 CTDI (mGy) COMPARISON: No prior exams available for comparison. TECHNIQUE: CT of the head without contrast. Using automated exposure control and adjustment of the mA and/or kV according to patient size, radiation dose was kept as low as reasonably achievable to ob tain optimal diagnostic quality images. DICOM format image data is available electronically for revi ew and comparison. FINDINGS: Cerebrum: The ventricles are normal for age. There is decreased density seen throughout the cerebral white matter. No evidence of midline shift, mass lesion, hemorrhage or acute infarction. No extraax ial fluid collections are seen. Posterior Fossa: The cerebellum and brainstem are intact. The 4th ventricle is midline. The cerebe llopontine angle is unremarkable. Extracranial: The visualized portion of the orbits is intact. Skull: The calvaria is intact. No evidence of skull fracture. CONCLUSION: 1. No acute intracranial abnormalities seen. 2. Widespread decreased density in the cerebral white matter likely from underlying small vessel isc hemic demyelination. . Electronically signed by: Matteo Sheppard MD 07/13/2018 10:26 AM EST
[2018-07-13 10:33] LABS: Hematocrit 11.2 % (39.0-51.0); Hemoglobin 3.7 gm/dL (13.0-17.0)
[2018-07-13] MEDS: Sod Chloride 0.9% Inj 1,000 ML IV.CONT SCH ×4 (10:33→21:32)
[2018-07-13] MEDS ORDERED: Piperacil/Tazo 3.375 GM Premix 50 ML IV.SIG ONE (10:34)
[2018-07-13 10:37] LABS: Activated Partial Thrombo Time 20.5 sec (23.4-31.7); INR 1.2 Ratio; Prothrombin Time 12.3 sec (9.8-11.6)
[2018-07-13] MEDS ORDERED: Pantoprazole Inj 40 MG Vial IV.PUSH ONE (10:42)
[2018-07-13 10:43] LABS: Albumin 2.9 g/dL (3.4-5.0); Anion Gap 11 meq/L (5-15); Aspartate Aminotransferase 13 U/L (15-37); Blood Urea Nitrogen 76 mg/dL (7-18); Calcium 8.1 mg/dL (8.5-10.1); Carbon Dioxide 22.9 meq/L (21.0-32.0); Chloride 107 meq/L (98-107); Glomerular Filtration Rate 58 mL/min (>89); Glucose,Random 230 mg/dL (74-106); Potassium 4.2 meq/L (3.5-5.1); Sodium 141 meq/L (136-145)
[2018-07-13 10:44] LABS: Alanine Aminotransferase 14 U/L (12-78)
[2018-07-13 10:48] LABS: Alkaline Phosphatase 35 U/L (45-117); Total Protein 5.8 g/dL (6.4-8.2)
[2018-07-13] MEDS ORDERED: Acetaminophen 325 MG Tablet PO PRN (11:00)
[2018-07-13] MEDS ORDERED: Bisacodyl 10 MG Supp RECTAL PRN (11:00)
[2018-07-13] MEDS ORDERED: Vancomycin Inj 1,000 MG in Sodium Chlor 0.9% Inj 250 ML IV.SIG SCH (11:00)
[2018-07-13] MEDS ORDERED: Pantoprazole Inj 80 MG in Sodium Chlor 0.9% Inj 100 ML IV.CONT SCH (11:00)
[2018-07-13] MEDS ORDERED: Sodium Chlor 0.9% Inj 250 ML IV.SIG SCH (11:00)
[2018-07-13 11:10] LABS: Bacteria,Urine Many /hpf; Bilirubin,Urine Negative (Negative); Clarity,Urine Hazy (Clear); Color,Urine Yellow (Yellw/Straw); Glucose,Urine (UA) Negative (Negative); Leukocyte Esterase,Urine Moderate (Negative); Mucus,Urine Moderate /lpf (Occasional); Nitrite,Urine Positive (Negative); Specific Gravity,Urine 1.018 (1.002-1.035)
[2018-07-13] MEDS: Sod Chloride 0.9% Inj 1,000 ML IV.SIG SCH ×2 (11:22→12:18)
[2018-07-13] MEDS ORDERED: Dextrose 50% in Water 50 ML Vial IV.PUSH PRN (11:38)
[2018-07-13 12:09] LABS: Reticulocyte Percent 11.3 % (0.4-3.0)
--- NOTE | 2018-07-13 12:14 | P.HP ---
History of Present Illness Service: Hospitalist Primary Care Physician: UNKNOWN Chief Complaint: Altered mental status, weakness, GI bleed History of Present Illness: Mr. Lin is a pleasant 78-year-old male with a history of diabetes mellitus, hypothyroidism, hyperlipidemia and chronic Morfin catheter use who presents to the emergency department due to altered mental status, confusion, generalized weakness. Patient woke up this morning around 4:56 AM and was not behaving like his normal self. He was also very weak. He could not ambulate the way he does using a cane. He was also having trouble picking up simple items. He also had diarrhea for 2 days. Patient's noted very dark stool. ED workup indicated hemoglobin 3.7 on admission. White blood cell count 21.7K, BUN 76, creatinine 1.21. Head CT was unremarkable for any acute findings. Past medical history: Diabetes mellitus, hypothyroidism, hyperlipidemia, benign prostatic hyperplasia, chronic Morfin catheter use Past surgical history: 2 hernia surgery, knee surgery, prostate surgery Social history: Patient does not use any tobacco or alcohol. Family history: No family history of Alzheimer's, Parkinson's, cancer. Inpatient Certification: I certify that the inpatient services were ordered in accordance with Medicare regulations governing the order. This includes certification that hospital inpatient services are reasonable and necessary and in the case of services not specified as inpatient-only under 42 CFR 419.22(n), that they are appropriately provided as inpatient services in accordance to with the 2-midnight benchmark under 43 CFR 412.3(e) Estimated Total Length of Stay (Days): 3 Plans for Post Hospital Care: Not yet determined Review of Systems All other systems reviewed negative except as stated in HPI [facility] - History History Provided By: Slot Tag Inserter / EMT - Medical History Medical History: Medical History (Last Reviewed 07/13/18 @ 12:18 by Shashi Wu DO) CHF (congestive heart failure) Diabetes High cholesterol Hypertension Left bundle branch block (LBBB) Suprapubic catheter Thyroid disease - Tobacco History Smoking Status: Former smoker Tobacco Type: Cigarettes - Alcohol History How Often Do You Have a Drink Containing Alcohol: Never - Substance Use History Substance History: No History of Abuse - Immunization History Tetanus Immunization: Unsure Medications and Allergies Active Medications: Active Medications Acetaminophen (Tylenol) 650 mg PO Q4H PRN PRN Reason: Headache, fever, pain 1-4 Al Hydroxide/Mg Hydroxide (Milk Of Magnesia Liq) 30 ml PO Q12H PRN PRN Reason: Mild Constipation Bisacodyl (Dulcolax Supp) 10 mg RECTAL DAILY PRN PRN Reason: SEVERE CONSITIPATION Dextrose (D50w Vial) 50 ml IV.PUSH UNSCH PRN PRN Reason: PER HYPOGLYCEMIA PROTOCOL Glucagon (Glucagon Inj) 1 mg OTHER PRN PRN PRN Reason: for Hypoglycemia Protocol Sodium Chloride (Ns Inj) 1,000 mls @ 125 mls/hr IV.CONT .Q8H [facility] Last Admin: 07/13/18 10:33 Dose: 125 mls/hr Sodium Chloride (Ns Inj) 250 mls @ 15 mls/hr IV.SIG ONCE [facility] Stop: 07/14/18 03:39 Last Admin: 07/13/18 11:59 Dose: 15 mls/hr Vancomycin HCl 1,000 mg/ (Sodium Chloride) 250 mls @ 250 mls/hr IV.SIG ELECTRICAL CAD TECHNICIAN [facility] Last Admin: 07/13/18 11:20 Dose: 250 mls/hr Pantoprazole Sodium 80 mg/ (Sodium Chloride) 100 mls @ 10 mls/hr IV.CONT CONT [place] Sodium Chloride (Ns Inj) 1,000 mls @ 100 mls/hr IV.CONT .Q10H [facility] Last Admin: 07/13/18 11:19 Dose: Not Given Ceftriaxone Sodium 1,000 mg/ (Sodium Chloride) 100 mls @ 200 mls/hr IV.SIG Q24H [facility] Insulin Aspart (Novolog Insulin Correctional Sugar Inj) 0 unit SQ ACHS [place]A; Protocol Lactulose (Lactulose Liq) 30 ml PO DAILY PRN PRN Reason: SEVERE CONSITIPATION Levothyroxine Sodium (Synthroid) 125 mcg PO DAILY [facility] Metoprolol Tartrate (Lopressor) 50 mg PO BID [facility] Ondansetron HCl (Zofran Inj) 4 mg IV.PUSH Q6H PRN PRN Reason: NAUSEA OR VOMITING Pravastatin Sodium (Pravachol) 20 mg PO DAILY [facility] Sennosides (Senokot) 17.2 mg PO Q12H PRN PRN Reason: Moderate Constipation Sodium Chloride (Ns Flush) 2 ml IV.FLUSH PRN PRN PRN Reason: FLUSH AFTER USING IV ACCESS Allergies Allergy/AdvReac Type Severity Reaction Status Date / Time No Known Allergies Allergy Verified 07/13/18 11:06 Home Medications Medication Instructions Recorded Confirmed Type aspirin [Aspirin Low Dose] 81 mg PO DAILY 07/13/18 07/13/18 History levothyroxine 125 mcg PO DAILY 07/13/18 07/13/18 History lovastatin 20 mg PO DAILY 07/13/18 07/13/18 History metformin 500 mg PO QPM 07/13/18 07/13/18 History metoprolol tartrate 50 mg PO BID 07/13/18 07/13/18 History naproxen 500 mg PO BID PRN 07/13/18 07/13/18 History Exam Vital signs: Vital Signs 07/13/18 09:43 07/13/18 09:52 07/13/18 10:22 Temperature 100.8 F H Pulse Rate 82 86 Respiratory Rate 20 17 Blood Pressure 132/61 131/60 Pulse Oximetry 100 99 100 07/13/18 11:53 07/13/18 12:12 Temperature 97.4 F L 97.7 F Pulse Rate 83 82 Respiratory Rate 15 13 Blood Pressure 114/56 L 115/56 L Pulse Oximetry Intake & Output 07/12/18 07/13/18 07/13/18 18:59 06:59 18:59 Intake Total 1050 / 1050 Balance 1050 / 1050 Weight 74.843 kg Intake: IV 1050 / 1050 Zosyn 3.375 GM Premix 50 ML @ 50 / 50 100 mls/hr IV.SIG ONCE ONE Rx#: [id number] NS Inj 1,000 ML @ 2000 mls/hr 1000 / 1000 IV.SIG Q30M [facility] Rx#:[id number] Intake (Blood Product) Amt 0 / 0 Rbc As-3 Leukoreduced Unit 0 / 0 [id number] Narrative: GENERAL: This is a well-nourished, well-developed patient, in no apparent distress. He appears to be pale. SKIN: No rashes, ecchymoses or lesions. Warm and dry. HEAD: Atraumatic. Normocephalic. No temporal or scalp tenderness. EYES: Pupils equal round and reactive. No injection or drainage. ENT: Nose without bleeding, purulent drainage or septal hematoma. Airway patent. NECK: Trachea midline. No lymphadenopathy. Supple, nontender, no meningeal signs. CARDIOVASCULAR: Regular rate and rhythm without murmurs, gallops, or rubs. No JVD. RESPIRATORY: Clear to auscultation. Breath sounds equal bilaterally. No wheezes , rales, or rhonchi. GASTROINTESTINAL: Abdomen soft, non-tender, nondistended. No guarding. MUSCULOSKELETAL: Extremities without clubbing, cyanosis. Lower extremity 1+ edema. Chronic Morfin catheter is in place. NEUROLOGICAL: Awake and alert. Cranial nerves II through XII intact. No focal neurological deficits. Normal speech. Results - Labs CBC & Chem 7: 07/13/18 10:05 07/13/18 10:05 Labs: Laboratory Results - last 24 hr 07/13/18 07/13/18 07/13/18 09:37 10:05 10:05 WBC 21.7 H RBC 1.15 L Hgb 3.7 L* Hct 11.2 L* MCV 97.2 MCH 32.4 MCHC 33.3 RDW 15.0 Plt Count 283 MPV 8.9 Prelim Diff (Auto) Slide review pending Neut % (Auto) 87.4 H Lymph % (Auto) 7.2 L Moffat % (Auto) 5.3 Eos % (Auto) 0.0 Baso % (Auto) 0.1 Neut # (Auto) 19.0 H Lymph # (Auto) 1.6 Moffat # (Auto) 1.2 H Eos # (Auto) 0.0 Baso # (Auto) 0.0 WBC Differential . Diff Scan Auto diff confirmed Differential Comment . Retic Count Absolute Retic PT 12.3 H INR 1.2 APTT 20.5 L Sodium Potassium Chloride Carbon Dioxide Anion Gap BUN Creatinine Estimated GFR POC Glucose 244 H Random Glucose Lactic Acid Calcium Magnesium Total Bilirubin AST ALT Alkaline Phosphatase Troponin I Total Protein Albumin Urine Color Urine Clarity Urine pH Ur Specific [place] Urine Protein Urine Glucose (UA) Urine Ketones Urine Occult Blood Urine Nitrate Urine Bilirubin Urine Urobilinogen Ur Leukocyte Esterase Urine RBC Urine WBC Urine Bacteria Urine Mucus Urine Yeast Ur Yeast w Hyphae Micro UA Comment Ur Microscopic Review Urine Culture Comments Blood Type Antibody Screen MTS Gel Crossmatch 07/13/18 07/13/18 07/13/18 10:05 10:05 10:20 WBC RBC Hgb Hct MCV MCH MCHC RDW Plt Count MPV Prelim Diff (Auto) Neut % (Auto) Lymph % (Auto) Moffat % (Auto) Eos % (Auto) Baso % (Auto) Neut # (Auto) Lymph # (Auto) Moffat # (Auto) Eos # (Auto) Baso # (Auto) WBC Differential Diff Scan Differential Comment Retic Count 11.3 H Absolute Retic 125.9 PT INR APTT Sodium 141 Potassium 4.2 Chloride 107 Carbon Dioxide 22.9 Anion Gap 11 BUN 76 H Creatinine 1.21 Estimated GFR 58 L POC Glucose Random Glucose 230 H Lactic Acid Calcium 8.1 L Magnesium 2.0 Total Bilirubin 0.2 AST 13 L ALT 14 Alkaline Phosphatase 35 L Troponin I Less than 0.02 L Total Protein 5.8 L Albumin 2.9 L Urine Color Urine Clarity Urine pH Ur Specific [place] Urine Protein Urine Glucose (UA) Urine Ketones Urine Occult Blood Urine Nitrate Urine Bilirubin Urine Urobilinogen Ur Leukocyte Esterase Urine RBC Urine WBC Urine Bacteria Urine Mucus Urine Yeast Ur Yeast w Hyphae Micro UA Comment Ur Microscopic Review Urine Culture Comments Blood Type O Positive Antibody Screen Negative MTS Gel Crossmatch See Detail 07/13/18 07/13/18 10:20 10:30 WBC RBC Hgb Hct MCV MCH MCHC RDW Plt Count MPV Prelim Diff (Auto) Neut % (Auto) Lymph % (Auto) Moffat % (Auto) Eos % (Auto) Baso % (Auto) Neut # (Auto) Lymph # (Auto) Moffat # (Auto) Eos # (Auto) Baso # (Auto) WBC Differential Diff Scan Differential Comment Retic Count Absolute Retic PT INR APTT Sodium Potassium Chloride Carbon Dioxide Anion Gap BUN Creatinine Estimated GFR POC Glucose Random Glucose Lactic Acid 3.0 H Calcium Magnesium Total Bilirubin AST ALT Alkaline Phosphatase Troponin I Total Protein Albumin Urine Color Yellow Urine Clarity Hazy H Urine pH 5.0 Ur Specific [place] 1.018 Urine Protein Negative Urine Glucose (UA) Negative Urine Ketones Negative Urine Occult Blood Negative Urine Nitrate Positive H Urine Bilirubin Negative Urine Urobilinogen Less than 2 Ur Leukocyte Esterase Moderate H Urine RBC 5 H Urine WBC 29 H Urine Bacteria Many H Urine Mucus Moderate H Urine Yeast Few H Ur Yeast w Hyphae Rare H Micro UA Comment Cath-culture ind Ur Microscopic Review Not Reportable Urine Culture Comments Cath-cult indicated Blood Type Antibody Screen MTS Gel Crossmatch - Imaging Impressions Head CT 07/13/18 09:37 CONCLUSION: 1. No acute intracranial abnormalities seen. 2. Widespread decreased density in the cerebral white matter likely from underlying small vessel ischemic demyelination. . Caprini VTE Risk Assessment Caprini VTE Risk Assessment: No/Low Risk (score <= 1) Caprini Risk Assessment Model: Point Value = 1 Point Value = 2 Point Value = 3 Point Value = 5 Age 41-60 Minor surgery BMI > 25 kg/m2 Swollen legs Varicose veins or History of unexplained or recurrent spontaneous Oral contraceptives or hormone replacement Sepsis (< 1 month) Serious lung disease, including pneumonia (< 1 month) Abnormal pulmonary function Acute myocardial infarction Congestive heart failure (< 1 month) History of inflammatory bowel disease Medical patient at bed rest Age 61-74 Arthroscopic surgery Major open surgery (> 45 min) Laparoscopic surgery (> 45 min) Malignancy Confined to bed (> 72 hours) Immobilizing plaster cast Central venous access Age >= 75 History of VTE Family history of VTE Factor V Leiden Prothrombin [id number] Lupus anticoagulant Anticardiolipin antibodies Elevated serum homocysteine Heparin-induced thrombocytopenia Other congenital or acquired thrombophilia Stroke (< 1 month) Elective arthroplasty Hip, pelvis, or leg fracture Acute spinal cord injury (< 1 month) Prophylaxis Regimen: Total Risk Factor Score Risk Level Prophylaxis Regimen 0-1 Low Early ambulation 2 Moderate Order ONE of the following: *Sequential Compression Device (SCD) *Heparin 5000 units SQ BID 3-4 Higher Order ONE of the following medications: *Heparin 5000 units SQ TID *Enoxaparin/Lovenox 40 mg SQ daily (WT < 150 kg, CrCl > 30 mL/min) *Enoxaparin/Lovenox 30 mg SQ daily (WT < 150 kg, CrCl > 10-29 mL/min) *Enoxaparin/Lovenox 30 mg SQ BID (WT < 150 kg, CrCl > 30 mL/min) AND/OR *Sequential Compression Device (SCD) 5 or more Highest Order ONE of the following medications: *Heparin 5000 units SQ TID (Preferred with Epidurals) *Enoxaparin/Lovenox 40 mg SQ daily (WT < 150 kg, CrCl > 30 mL/min) *Enoxaparin/Lovenox 30 mg SQ daily (WT < 150 kg, CrCl > 10-29 mL/min) *Enoxaparin/Lovenox 30 mg SQ BID (WT < 150 kg, CrCl > 30 mL/min) AND *Sequential Compression Device (SCD) Assessment and Plan - Plan Mr. Lin is a pleasant 78-year-old male with a history of diabetes mellitus , thyroidism, hyperlipidemia who presents to the emergency department due to altered mental status, diarrhea with dark stool for 2 days as well as generalized weakness. His hemoglobin was found to be 3.7 on admission. Acute symptomatic anemia due to GI blood loss Likely upper GI bleed. ED provider started Protonix drip. GI consulted. Patient may need EGD as well as possibly colonoscopy as well. Blood transfusion ordered by ED. Patient may need 3-4 units of PRBCs. Avoid NSAIDs including aspirin. Possible urinary tract infection We will start empiric coverage with ceftriaxone 1 g daily. Follow urine culture results. Hypothyroidism Hyperlipidemia Diabetes mellitus Continue levothyroxine 125 mcg daily, statin. Sliding scale insulin. May need long-acting insulin as well. Full code. SCDs.
[2018-07-13] MEDS: Insulin NovoLOG Aspart Correctional Sugar Inj SQ SCH ×3 (12:46→21:32)
[2018-07-13 13:40] LABS: % Iron Saturation 8.2 % (20-50)
[2018-07-13 13:54] LABS: Folate 10.1 ng/mL (3.1-17.5)
--- NOTE | 2018-07-13 14:41 | P.CONGI ---
History of Present Illness Consult date: 07/13/18 Consult reason: GI bleed with anemia Chief complaint: GI bleed, severe anemia History of Present Illness: This patient is a 78-year-old male who presents to the emergency department at [facility] for altered mental status. Patient's medical history includes congestive heart failure, diabetes, high cholesterol, hypertension, left bundle branch block and thyroid disease. Surgical history includes hernia repair. His spouse reports that he was confused and she was unable to assist him with ambulation. Patient denies any complaints. Denies any headache dizziness chest pain shortness of breath or abdominal pain. WBC 21.7 hemoglobin 3.7 hematocrit 11.2 platelet count 283 noted on admission. Upon consultation, patient and spouse report 2-day onset of dark stools. Patient denies any abdominal pain or nausea vomiting. Spouse endorses that patient has been taking aspirin 81 mg by mouth every other day. Of note, patient has also been taking Naprosyn 500 mg p.o. twice daily for the last several months for knee joint pain. Last dose 3 days ago. Patient denies any use of's tobacco or alcohol products. Patient denies any known family history for gastrointestinal disorders. Patient denies any heartburn or difficulty swallowing. Patient is spouse endorse last colonoscopy was done 4 years ago where benign polyps were found. Patient denies ever having had an EGD in the past. Our service has been consulted to evaluate patient for severe anemia/GI bleeding. <Maida Cook - Last Filed: 07/13/18 14:30> Review of Systems All other systems reviewed negative except as stated in HPI <Maida Cook - Last Filed: 07/13/18 14:30> PMFSH - History History Provided By: Cad Programmer / EMT - Medical History Medical History: Medical History (Last Reviewed 07/13/18 @ 12:18 by Shashi Wu DO) CHF (congestive heart failure) Diabetes High cholesterol Hypertension Left bundle branch block (LBBB) Suprapubic catheter Thyroid disease - Tobacco History Smoking Status: Former smoker Tobacco Type: Cigarettes - Alcohol History How Often Do You Have a Drink Containing Alcohol: Never - Substance Use History Substance History: No History of Abuse - Immunization History Tetanus Immunization: Unsure <Maida Cook - Last Filed: 07/13/18 14:30> - Medical History Medical History: Medical History (Last Reviewed 07/13/18 @ 12:18 by Shashi Wu DO) CHF (congestive heart failure) Diabetes High cholesterol Hypertension Left bundle branch block (LBBB) Suprapubic catheter Thyroid disease <Gloria Herndon - Last Filed: 07/14/18 09:52> Medications and Allergies Active Medications: Active Medications Acetaminophen (Tylenol) 650 mg PO Q4H PRN PRN Reason: Headache, fever, pain 1-4 Al Hydroxide/Mg Hydroxide (Milk Of Magnesia Liq) 30 ml PO Q12H PRN PRN Reason: Mild Constipation Bisacodyl (Dulcolax Supp) 10 mg RECTAL DAILY PRN PRN Reason: SEVERE CONSITIPATION Dextrose (D50w Vial) 50 ml IV.PUSH UNSCH PRN PRN Reason: PER HYPOGLYCEMIA PROTOCOL Glucagon (Glucagon Inj) 1 mg OTHER PRN PRN PRN Reason: for Hypoglycemia Protocol Sodium Chloride (Ns Inj) 1,000 mls @ 125 mls/hr IV.CONT .Q8H [facility] Last Admin: 07/13/18 10:33 Dose: 125 mls/hr Sodium Chloride (Ns Inj) 250 mls @ 15 mls/hr IV.SIG ONCE [facility] Stop: 07/14/18 03:39 Last Admin: 07/13/18 11:59 Dose: 15 mls/hr Vancomycin HCl 1,000 mg/ (Sodium Chloride) 250 mls @ 250 mls/hr IV[facility] Last Infusion: 07/13/18 12:16 Dose: Infused Sodium Chloride (Ns Inj) 1,000 mls @ 100 mls/hr IV.CONT .Q10H [facility] Last Admin: 07/13/18 11:19 Dose: Not Given Ceftriaxone Sodium 1,000 mg/ (Sodium Chloride) 100 mls @ 200 mls/hr IV.SIG Q24H [facility] Last Admin: 07/13/18 12:47 Dose: 200 mls/hr Pantoprazole Sodium 80 mg/ (Sodium Chloride) 100 mls @ 10 mls/hr IV.CONT Q10H [facility] Insulin Aspart (Novolog Insulin Correctional Sugar Inj) 0 unit SQ ACHS [facility]; Protocol Last Admin: 07/13/18 12:46 Dose: 100 unit Lactulose (Lactulose Liq) 30 ml PO DAILY PRN PRN Reason: SEVERE CONSITIPATION Levothyroxine Sodium (Synthroid) 125 mcg PO DAILY [facility] Metoprolol Tartrate (Lopressor) 50 mg PO BID [facility] Ondansetron HCl (Zofran Inj) 4 mg IV.PUSH Q6H PRN PRN Reason: NAUSEA OR VOMITING Pravastatin Sodium (Pravachol) 20 mg PO DAILY [facility] Sennosides (Senokot) 17.2 mg PO Q12H PRN PRN Reason: Moderate Constipation Sodium Chloride (Ns Flush) 2 ml IV.FLUSH PRN PRN PRN Reason: FLUSH AFTER USING IV ACCESS <Maiad Cook - Last Filed: 07/13/18 14:30> Active Medications: Active Medications Acetaminophen (Tylenol) 650 mg PO Q4H PRN PRN Reason: Headache, fever, pain 1-4 Al Hydroxide/Mg Hydroxide (Milk Of Magnesia Liq) 30 ml PO Q12H PRN PRN Reason: Mild Constipation Bisacodyl (Dulcolax Supp) 10 mg RECTAL DAILY PRN PRN Reason: SEVERE CONSITIPATION Dextrose (D50w Vial) 50 ml IV.PUSH UNSCH PRN PRN Reason: PER HYPOGLYCEMIA PROTOCOL Glucagon (Glucagon Inj) 1 mg OTHER PRN PRN PRN Reason: for Hypoglycemia Protocol Sodium Chloride (Ns Inj) 1,000 mls @ 125 mls/hr IV.CONT .Q8H [facility] Last Admin: 07/14/18 01:11 Dose: Not Given Vancomycin HCl 1,000 mg/ (Sodium Chloride) 250 mls @ 250 mls/hr IV.[facility] Last Infusion: 07/13/18 12:16 Dose: Infused Sodium Chloride (Ns Inj) 1,000 mls @ 100 mls/hr IV.CONT .Q10H [facility] Last Infusion: 07/13/18 23:39 Dose: 0 mls/hr Ceftriaxone Sodium 1,000 mg/ (Sodium Chloride) 100 mls @ 200 mls/hr IV.SIG Q24H [facility] Last Infusion: 07/13/18 13:00 Dose: Infused Pantoprazole Sodium 80 mg/ (Sodium Chloride) 100 mls @ 10 mls/hr IV.CONT Q10H [facility] Last Admin: 07/14/18 04:12 Dose: 10 mls/hr Sodium Chloride (Ns Inj) 250 mls @ 15 mls/hr IV.SIG ONCE [facility] Stop: 07/14/18 17:39 Last Admin: 07/14/18 01:11 Dose: 15 mls/hr Insulin Aspart (Novolog Insulin Correctional Sugar Inj) 0 unit SQ ACHS [facility]; Protocol Last Admin: 07/14/18 09:11 Dose: Not Given Lactulose (Lactulose Liq) 30 ml PO DAILY PRN PRN Reason: SEVERE CONSITIPATION Levothyroxine Sodium (Synthroid) 125 mcg PO DAILY [facility] Last Admin: 07/14/18 09:07 Dose: 125 mcg Metoprolol Tartrate (Lopressor) 50 mg PO BID [facility] Last Admin: 07/14/18 09:07 Dose: 50 mg Ondansetron HCl (Zofran Inj) 4 mg IV.PUSH Q6H PRN PRN Reason: NAUSEA OR VOMITING Pravastatin Sodium (Pravachol) 20 mg PO DAILY [facility] Last Admin: 07/14/18 09:07 Dose: 20 mg Sennosides (Senokot) 17.2 mg PO Q12H PRN PRN Reason: Moderate Constipation Sodium Chloride (Ns Flush) 2 ml IV.FLUSH PRN PRN PRN Reason: FLUSH AFTER USING IV ACCESS <Gloria Herndon - Last Filed: 07/14/18 09:52> Allergies Allergy/AdvReac Type Severity Reaction Status Date / Time No Known Allergies Allergy Verified 07/13/18 11:06 Home Medications Medication Instructions Recorded Confirmed Type aspirin [Aspirin Low Dose] 81 mg PO DAILY 07/13/18 07/13/18 History levothyroxine 125 mcg PO DAILY 07/13/18 07/13/18 History lovastatin 20 mg PO DAILY 07/13/18 07/13/18 History metformin 500 mg PO QPM 07/13/18 07/13/18 History metoprolol tartrate 50 mg PO BID 07/13/18 07/13/18 History naproxen 500 mg PO BID PRN 07/13/18 07/13/18 History Exam Vital signs: Vital Signs 07/13/18 09:43 07/13/18 09:52 07/13/18 10:22 Temperature 100.8 F H Pulse Rate 82 86 Respiratory Rate 20 17 Blood Pressure 132/61 131/60 Pulse Oximetry 100 99 100 07/13/18 11:53 07/13/18 12:12 07/13/18 12:47 Temperature 97.4 F L 97.7 F 98.3 F Pulse Rate 83 82 77 Respiratory Rate 15 13 15 Blood Pressure 114/56 L 115/56 L 120/76 Pulse Oximetry Intake & Output 07/12/18 07/13/18 07/13/18 18:59 06:59 18:59 Intake Total 1300 / 1300 Balance 1300 / 1300 Weight 74.843 kg Intake: IV 1300 / 1300 Zosyn 3.375 GM Premix 50 ML @ 50 / 50 100 mls/hr IV.SIG ONCE ONE Rx#: [id number] NS Inj 1,000 ML @ 2000 mls/hr 1000 / 1000 IV.SIG Q30M [facility] Rx#:[id number] Vancomycin Inj 1,000 MG In NS 250 / 250 Inj 250 ML @ 250 mls/hr IV[facility] Rx#:[id number] Intake (Blood Product) Amt 0 / 0 Rbc As-3 Leukoreduced Unit 0 / 0 [id number] - Constitutional chronically ill appearing - Routine HEENT Exam Head: Present: normocephalic - Routine Respiratory Exam Present: CTA bilaterally. Absent: accessory muscle use - Routine Abdominal Exam Present: soft, normoactive bowel sounds. Absent: tenderness, distended, guarding, firm - Routine Extremities Exam Present: pulses intact. Absent: edema - Routine Skin Exam Present: dry, pallor, warm - Routine Neurological Exam Present: alert <Cook,Maida - Last Filed: 07/13/18 14:30> Vital signs: Vital Signs 07/13/18 09:52 07/13/18 10:22 07/13/18 11:53 Temperature 97.4 F L Pulse Rate 86 83 Respiratory Rate 17 15 Blood Pressure 131/60 114/56 L Pulse Oximetry 99 100 07/13/18 12:12 07/13/18 12:47 07/13/18 15:49 Temperature 97.7 F 98.3 F Pulse Rate 82 77 90 Respiratory Rate 13 15 Blood Pressure 115/56 L 120/76 Pulse Oximetry 07/13/18 16:30 07/13/18 19:00 07/13/18 19:56 Temperature 98.0 F 98.4 F Pulse Rate 83 81 82 Respiratory Rate 18 16 Blood Pressure 144/46 H 116/44 L Pulse Oximetry 99 100 07/13/18 20:00 07/13/18 20:30 07/13/18 21:00 Temperature 98.4 F Pulse Rate 71 82 63 Respiratory Rate 17 Blood Pressure 107/55 L Pulse Oximetry 100 100 07/13/18 21:21 07/13/18 22:00 07/13/18 23:00 Temperature Pulse Rate 66 57 L Respiratory Rate Blood Pressure Pulse Oximetry 98 07/14/18 00:00 07/14/18 01:00 07/14/18 01:04 Temperature 98.4 F 97.8 F Pulse Rate 60 83 62 Respiratory Rate 17 18 Blood Pressure 107/55 L 107/49 L Pulse Oximetry 100 98 07/14/18 01:16 07/14/18 02:00 07/14/18 03:00 Temperature 97.9 F Pulse Rate 69 64 69 Respiratory Rate 18 Blood Pressure 104/49 L Pulse Oximetry 93 L 07/14/18 04:00 07/14/18 05:00 07/14/18 06:00 Temperature 98.4 F Pulse Rate 68 82 75 Respiratory Rate 17 Blood Pressure 121/55 L Pulse Oximetry 100 07/14/18 07:00 Temperature Pulse Rate 65 Respiratory Rate Blood Pressure Pulse Oximetry Intake & Output 07/13/18 07/14/18 07/14/18 18:59 06:59 18:59 Intake Total 1918 / 1918 2070.0 / 2070.0 Output Total 950 / 950 950 / 950 Balance 968 / 968 1120.0 / 1120.0 Weight 74.843 kg 74.7 kg Intake: IV 1400 / 1400 1150.0 / 1150.0 Protonix Inj 80 MG In NS Inj 100.0 / 100.0 100 ML @ 10 mls/hr IV.CONT Q10H [facility] Rx#:[id number] NS Inj 1,000 ML @ 125 mls/hr IV 1000 / 1000 .CONT .Q8H [facility] Rx#:[id number] Zosyn 3.375 GM Premix 50 ML @ 50 / 50 100 mls/hr IV.SIG ONCE ONE Rx#: [id number] NS Inj 1,000 ML @ 2000 mls/hr 1000 / 1000 IV.SIG Q30M [facility] Rx#:[id number] NS Inj 250 ML @ 15 mls/hr IV. 50 / 50 SIG ONCE [facility] Rx#:[id number] Vancomycin Inj 1,000 MG In NS 250 / 250 Inj 250 ML @ 250 mls/hr IV[facility]SIG [facility] Rx#:[id number] Rocephin Inj 1,000 MG In NS Inj 100 / 100 100 ML @ 200 mls/hr IV.SIG Q24H [facility] Rx#:[id number] Oral 118 / 118 120 / 120 Intake (Blood Product) Amt 400 / 400 800 / 800 Rbc As-3 Leukoreduced Unit 0 / 0 400 / 400 [id number] Rbc As-3 Leukoreduced Unit 400 / 400 [id number] Rbc As-3 Leukoreduced Unit 400 / 400 [id number] Output: Urine 950 / 950 950 / 950 <Gloria Herndon A - Last Filed: 07/14/18 09:52> Results - Labs CBC & Chem 7: 07/13/18 10:05 07/13/18 10:05 Labs: Laboratory Results - last 24 hr 07/13/18 07/13/18 07/13/18 09:37 10:05 10:05 WBC 21.7 H RBC 1.15 L Hgb 3.7 L* Hct 11.2 L* MCV 97.2 MCH 32.4 MCHC 33.3 RDW 15.0 Plt Count 283 MPV 8.9 Prelim Diff (Auto) Slide review pending Neut % (Auto) 87.4 H Lymph % (Auto) 7.2 L Preston % (Auto) 5.3 Eos % (Auto) 0.0 Baso % (Auto) 0.1 Neut # (Auto) 19.0 H Lymph # (Auto) 1.6 Preston # (Auto) 1.2 H Eos # (Auto) 0.0 Baso # (Auto) 0.0 WBC Differential . Diff Scan Auto diff confirmed Differential Comment . Retic Count Absolute Retic PT 12.3 H INR 1.2 APTT 20.5 L Sodium Potassium Chloride Carbon Dioxide Anion Gap BUN Creatinine Estimated GFR POC Glucose 244 H Random Glucose Lactic Acid Calcium Magnesium Iron TIBC % Saturation Ferritin Total Bilirubin AST ALT Alkaline Phosphatase Troponin I Total Protein Albumin Folate Urine Color Urine Clarity Urine pH Ur Specific [place] Urine Protein Urine Glucose (UA) Urine Ketones Urine Occult Blood Urine Nitrate Urine Bilirubin Urine Urobilinogen Ur Leukocyte Esterase Urine RBC Urine WBC Urine Bacteria Urine Mucus Urine Yeast Ur Yeast w Hyphae Micro UA Comment Ur Microscopic Review Urine Culture Comments Blood Type Antibody Screen MTS Gel Crossmatch 1107/13/18 07/13/18 10:05 10:05 10:05 WBC RBC Hgb Hct MCV MCH MCHC RDW Plt Count MPV Prelim Diff (Auto) Neut % (Auto) Lymph % (Auto) Preston % (Auto) Eos % (Auto) Baso % (Auto) Neut # (Auto) Lymph # (Auto) Preston # (Auto) Eos # (Auto) Baso # (Auto) WBC Differential Diff Scan Differential Comment Retic Count 11.3 H Absolute Retic 125.9 PT INR APTT Sodium 141 Potassium 4.2 Chloride 107 Carbon Dioxide 22.9 Anion Gap 11 BUN 76 H Creatinine 1.21 Estimated GFR 58 L POC Glucose Random Glucose 230 H Lactic Acid Calcium 8.1 L Magnesium 2.0 Iron 22 L TIBC 269 % Saturation 8.2 L Ferritin 28 Total Bilirubin 0.2 AST 13 L ALT 14 Alkaline Phosphatase 35 L Troponin I Less than 0.02 L Total Protein 5.8 L Albumin 2.9 L Folate 10.1 Urine Color Urine Clarity Urine pH Ur Specific [place] Urine Protein Urine Glucose (UA) Urine Ketones Urine Occult Blood Urine Nitrate Urine Bilirubin Urine Urobilinogen Ur Leukocyte Esterase Urine RBC Urine WBC Urine Bacteria Urine Mucus Urine Yeast Ur Yeast w Hyphae Micro UA Comment Ur Microscopic Review Urine Culture Comments Blood Type Antibody Screen MTS Gel Crossmatch 07/13/18 07/13/18 07/13/18 10:20 10:20 10:30 WBC RBC Hgb Hct MCV MCH MCHC RDW Plt Count MPV Prelim Diff (Auto) Neut % (Auto) Lymph % (Auto) Preston % (Auto) Eos % (Auto) Baso % (Auto) Neut # (Auto) Lymph # (Auto) Preston # (Auto) Eos # (Auto) Baso # (Auto) WBC Differential Diff Scan Differential Comment Retic Count Absolute Retic PT INR APTT Sodium Potassium Chloride Carbon Dioxide Anion Gap BUN Creatinine Estimated GFR POC Glucose Random Glucose Lactic Acid 3.0 H Calcium Magnesium Iron TIBC % Saturation Ferritin Total Bilirubin AST ALT Alkaline Phosphatase Troponin I Total Protein Albumin Folate Urine Color Yellow Urine Clarity Hazy H Urine pH 5.0 Ur Specific [place] 1.018 Urine Protein Negative Urine Glucose (UA) Negative Urine Ketones Negative Urine Occult Blood Negative Urine Nitrate Positive H Urine Bilirubin Negative Urine Urobilinogen Less than 2 Ur Leukocyte Esterase Moderate H Urine RBC 5 H Urine WBC 29 H Urine Bacteria Many H Urine Mucus Moderate H Urine Yeast Few H Ur Yeast w Hyphae Rare H Micro UA Comment Cath-culture ind Ur Microscopic Review Not Reportable Urine Culture Comments Cath-cult indicated Blood Type O Positive Antibody Screen Negative MTS Gel Crossmatch See Detail 07/13/18 12:21 WBC RBC Hgb Hct MCV MCH MCHC RDW Plt Count MPV Prelim Diff (Auto) Neut % (Auto) Lymph % (Auto) Preston % (Auto) Eos % (Auto) Baso % (Auto) Neut # (Auto) Lymph # (Auto) Preston # (Auto) Eos # (Auto) Baso # (Auto) WBC Differential Diff Scan Differential Comment Retic Count Absolute Retic PT INR APTT Sodium Potassium Chloride Carbon Dioxide Anion Gap BUN Creatinine Estimated GFR POC Glucose 221 H Random Glucose Lactic Acid Calcium Magnesium Iron TIBC % Saturation Ferritin Total Bilirubin AST ALT Alkaline Phosphatase Troponin I Total Protein Albumin Folate Urine Color Urine Clarity Urine pH Ur Specific [place] Urine Protein Urine Glucose (UA) Urine Ketones Urine Occult Blood Urine Nitrate Urine Bilirubin Urine Urobilinogen Ur Leukocyte Esterase Urine RBC Urine WBC Urine Bacteria Urine Mucus Urine Yeast Ur Yeast w Hyphae Micro UA Comment Ur Microscopic Review Urine Culture Comments Blood Type Antibody Screen MTS Gel Crossmatch - Imaging Impressions Head CT 07/13/18 09:37 CONCLUSION: 1. No acute intracranial abnormalities seen. 2. Widespread decreased density in the cerebral white matter likely from underlying small vessel ischemic demyelination. . <Maida Cook - Last Filed: 07/13/18 14:30> - Labs CBC & Chem 7: 07/14/18 06:08 07/14/18 06:08 Labs: Laboratory Results - last 24 hr 07/13/18 07/13/18 07/13/18 10:05 10:05 10:05 WBC 21.7 H RBC 1.15 L Hgb 3.7 L* Hct 11.2 L* MCV 97.2 MCH 32.4 MCHC 33.3 RDW 15.0 Plt Count 283 MPV 8.9 Prelim Diff (Auto) Slide review pending Neut % (Auto) 87.4 H Lymph % (Auto) 7.2 L Preston % (Auto) 5.3 Eos % (Auto) 0.0 Baso % (Auto) 0.1 Neut # (Auto) 19.0 H Lymph # (Auto) 1.6 Preston # (Auto) 1.2 H Eos # (Auto) 0.0 Baso # (Auto) 0.0 WBC Differential . Diff Scan Auto diff confirmed Differential Comment . Retic Count Absolute Retic PT 12.3 H INR 1.2 APTT 20.5 L Sodium 141 Potassium 4.2 Chloride 107 Carbon Dioxide 22.9 Anion Gap 11 BUN 76 H Creatinine 1.21 Estimated GFR 58 L POC Glucose Random Glucose 230 H Lactic Acid Calcium 8.1 L Magnesium 2.0 Iron TIBC % Saturation Ferritin Total Bilirubin 0.2 AST 13 L ALT 14 Alkaline Phosphatase 35 L Troponin I Less than 0.02 L Total Protein 5.8 L Albumin 2.9 L Folate Urine Color Urine Clarity Urine pH Ur Specific [place] Urine Protein Urine Glucose (UA) Urine Ketones Urine Occult Blood Urine Nitrate Urine Bilirubin Urine Urobilinogen Ur Leukocyte Esterase Urine RBC Urine WBC Urine Bacteria Urine Mucus Urine Yeast Ur Yeast w Hyphae Micro UA Comment Ur Microscopic Review Urine Culture Comments Blood Type Antibody Screen MTS Gel Crossmatch 07/13/18 07/13/18 07/13/18 10:05 10:05 10:20 WBC RBC Hgb Hct MCV MCH MCHC RDW Plt Count MPV Prelim Diff (Auto) Neut % (Auto) Lymph % (Auto) Preston % (Auto) Eos % (Auto) Baso % (Auto) Neut # (Auto) Lymph # (Auto) Preston # (Auto) Eos # (Auto) Baso # (Auto) WBC Differential Diff Scan Differential Comment Retic Count 11.3 H Absolute Retic 125.9 PT INR APTT Sodium Potassium Chloride Carbon Dioxide Anion Gap BUN Creatinine Estimated GFR POC Glucose Random Glucose Lactic Acid Calcium Magnesium Iron 22 L TIBC 269 % Saturation 8.2 L Ferritin 28 Total Bilirubin AST ALT Alkaline Phosphatase Troponin I Total Protein Albumin Folate 10.1 Urine Color Urine Clarity Urine pH Ur Specific [place] Urine Protein Urine Glucose (UA) Urine Ketones Urine Occult Blood Urine Nitrate Urine Bilirubin Urine Urobilinogen Ur Leukocyte Esterase Urine RBC Urine WBC Urine Bacteria Urine Mucus Urine Yeast Ur Yeast w Hyphae Micro UA Comment Ur Microscopic Review Urine Culture Comments Blood Type O Positive Antibody Screen Negative MTS Gel Crossmatch See Detail 07/13/18 07/13/18 07/13/18 10:20 10:30 12:21 WBC RBC Hgb Hct MCV MCH MCHC RDW Plt Count MPV Prelim Diff (Auto) Neut % (Auto) Lymph % (Auto) Preston % (Auto) Eos % (Auto) Baso % (Auto) Neut # (Auto) Lymph # (Auto) Preston # (Auto) Eos # (Auto) Baso # (Auto) WBC Differential Diff Scan Differential Comment Retic Count Absolute Retic PT INR APTT Sodium Potassium Chloride Carbon Dioxide Anion Gap BUN Creatinine Estimated GFR POC Glucose 221 H Random Glucose Lactic Acid 3.0 H Calcium Magnesium Iron TIBC % Saturation Ferritin Total Bilirubin AST ALT Alkaline Phosphatase Troponin I Total Protein Albumin Folate Urine Color Yellow Urine Clarity Hazy H Urine pH 5.0 Ur Specific [place] 1.018 Urine Protein Negative Urine Glucose (UA) Negative Urine Ketones Negative Urine Occult Blood Negative Urine Nitrate Positive H Urine Bilirubin Negative Urine Urobilinogen Less than 2 Ur Leukocyte Esterase Moderate H Urine RBC 5 H Urine WBC 29 H Urine Bacteria Many H Urine Mucus Moderate H Urine Yeast Few H Ur Yeast w Hyphae Rare H Micro UA Comment Cath-culture ind Ur Microscopic Review Not Reportable Urine Culture Comments Cath-cult indicated Blood Type Antibody Screen MTS Gel Crossmatch 07/13/18 07/13/18 07/13/18 16:40 17:38 21:30 WBC RBC Hgb Hct MCV MCH MCHC RDW Plt Count MPV Prelim Diff (Auto) Neut % (Auto) Lymph % (Auto) Preston % (Auto) Eos % (Auto) Baso % (Auto) Neut # (Auto) Lymph # (Auto) Preston # (Auto) Eos # (Auto) Baso # (Auto) WBC Differential Diff Scan Differential Comment Retic Count Absolute Retic PT INR APTT Sodium Potassium Chloride Carbon Dioxide Anion Gap BUN Creatinine Estimated GFR POC Glucose 169 H 153 H Random Glucose Lactic Acid 2.7 H Calcium Magnesium Iron TIBC % Saturation Ferritin Total Bilirubin AST ALT Alkaline Phosphatase Troponin I Total Protein Albumin Folate Urine Color Urine Clarity Urine pH Ur Specific [place] Urine Protein Urine Glucose (UA) Urine Ketones Urine Occult Blood Urine Nitrate Urine Bilirubin Urine Urobilinogen Ur Leukocyte Esterase Urine RBC Urine WBC Urine Bacteria Urine Mucus Urine Yeast Ur Yeast w Hyphae Micro UA Comment Ur Microscopic Review Urine Culture Comments Blood Type Antibody Screen MTS Gel Crossmatch 07/13/18 07/14/18 07/14/18 23:49 00:21 06:08 WBC 17.2 H RBC 2.23 L Hgb 5.7 L* D 7.4 L Hct 16.8 L* 21.1 L MCV 94.6 MCH 33.2 MCHC 35.1 RDW 14.8 Plt Count 207 MPV 8.8 Prelim Diff (Auto) Neut % (Auto) 83.0 H Lymph % (Auto) 7.4 L Preston % (Auto) 9.3 H Eos % (Auto) 0.2 Baso % (Auto) 0.1 Neut # (Auto) 14.2 H Lymph # (Auto) 1.3 Preston # (Auto) 1.6 H Eos # (Auto) 0.0 Baso # (Auto) 0.0 WBC Differential . Diff Scan Differential Comment Auto diff final Retic Count Absolute Retic PT INR APTT Sodium Potassium Chloride Carbon Dioxide Anion Gap BUN Creatinine Estimated GFR POC Glucose Random Glucose Lactic Acid Calcium Magnesium Iron TIBC % Saturation Ferritin Total Bilirubin AST ALT Alkaline Phosphatase Troponin I Total Protein Albumin Folate Urine Color Urine Clarity Urine pH Ur Specific [place] Urine Protein Urine Glucose (UA) Urine Ketones Urine Occult Blood Urine Nitrate Urine Bilirubin Urine Urobilinogen Ur Leukocyte Esterase Urine RBC Urine WBC Urine Bacteria Urine Mucus Urine Yeast Ur Yeast w Hyphae Micro UA Comment Ur Microscopic Review Urine Culture Comments Blood Type Antibody Screen MTS Gel Crossmatch See Detail 07/14/18 07/14/18 06:08 09:11 WBC RBC Hgb Hct MCV MCH MCHC RDW Plt Count MPV Prelim Diff (Auto) Neut % (Auto) Lymph % (Auto) Preston % (Auto) Eos % (Auto) Baso % (Auto) Neut # (Auto) Lymph # (Auto) [place] # (Auto) Eos # (Auto) Baso # (Auto) WBC Differential Diff Scan Differential Comment Retic Count Absolute Retic PT INR APTT Sodium 145 Potassium 3.1 L D Chloride 111 H Carbon Dioxide 25.6 Anion Gap 8 BUN 48 H Creatinine 0.92 Estimated GFR 80 L POC Glucose 148 H Random Glucose 144 H Lactic Acid Calcium 7.5 L Magnesium Iron TIBC % Saturation Ferritin Total Bilirubin AST ALT Alkaline Phosphatase Troponin I Total Protein Albumin Folate Urine Color Urine Clarity Urine pH Ur Specific [place] Urine Protein Urine Glucose (UA) Urine Ketones Urine Occult Blood Urine Nitrate Urine Bilirubin Urine Urobilinogen Ur Leukocyte Esterase Urine RBC Urine WBC Urine Bacteria Urine Mucus Urine Yeast Ur Yeast w Hyphae Micro UA Comment Ur Microscopic Review Urine Culture Comments Blood Type Antibody Screen MTS Gel Crossmatch - Imaging Impressions Head CT 07/13/18 09:37 CONCLUSION: 1. No acute intracranial abnormalities seen. 2. Widespread decreased density in the cerebral white matter likely from underlying small vessel ischemic demyelination. . <Gloria Herndon - Last Filed: 07/14/18 09:52> Assessment and Plan (1) GI (gastrointestinal bleed) Status: Acute Code(s): K92.2 - Gastrointestinal hemorrhage, unspecified (2) Anemia Status: Acute Code(s): D64.9 - Anemia, unspecified - Plan This patient is a 78-year-old male who presents to the emergency department at [facility] for altered mental status. Patient's medical history includes congestive heart failure, diabetes, high cholesterol, hypertension, left bundle branch block and thyroid disease. Surgical history includes hernia repair. His spouse reports that he was confused and she was unable to assist him with ambulation. Patient denies any complaints. Denies any headache dizziness chest pain shortness of breath or abdominal pain. WBC 21.7 hemoglobin 3.7 hematocrit 11.2 platelet count 283 noted on admission. Upon consultation, patient and spouse report 2-day onset of dark stools. Patient denies any abdominal pain or nausea vomiting. Spouse endorses that patient has been taking aspirin 81 mg by mouth every other day. Of note, patient has also been taking Naprosyn 500 mg p.o. twice daily for the last several months for knee joint pain. Last dose 3 days ago. Patient denies any use of's tobacco or alcohol products. Patient denies any known family history for gastrointestinal disorders. Patient denies any heartburn or difficulty swallowing. Patient is spouse endorse last colonoscopy was done 4 years ago where benign polyps were found. Patient denies ever having had an EGD in the past. Our service has been consulted to evaluate patient for severe anemia/GI bleeding. GI bleed Anemia Patient and spouse endorsed 2-day onset of dark stools. Aspirin 81 mg p.o. every other day as well as Naprosyn 500 mg p.o. twice daily for the last several months taken for knee pain. 07/13/2018 hemoglobin 3.7 hematocrit 11.2 WBC 21.7. 2 units packed RBCs ordered for transfusion. Plan -Clear liquid diet -N.p.o. after midnight -Obtain consent for EGD -Monitor patient for bleeding -Transfuse as needed -Antiemetics as per attending -Pantoprazole drip -Supportive care -Further recommendations to follow This patient has been seen by myself and Dr. Herndon and this note is written on his behalf - Attending Attestation Dr. Herndon <Maida Cook - Last Filed: 07/13/18 14:30> (1) GI (gastrointestinal bleed) Status: Acute Code(s): K92.2 - Gastrointestinal hemorrhage, unspecified (2) Anemia Status: Acute Code(s): D64.9 - Anemia, unspecified - Attending Attestation Seen and examined, discussed with the team. Will plan EGD in AM. Thank you for the consult. <Gloria Herndon - Last Filed: 07/14/18 09:52> <Maida Cook - Last Filed: 07/13/18 14:30> (1) GI (gastrointestinal bleed) Qualifiers: GI bleed type/associated pathology: melena Qualified Code(s): K92.1 - Melena (2) Anemia Qualifiers: Anemia type: unspecified type Qualified Code(s): D64.9 - Anemia, unspecified <Gloria Herndon - Last Filed: 07/14/18 09:52> (1) GI (gastrointestinal bleed) Qualifiers: GI bleed type/associated pathology: melena Qualified Code(s): K92.1 - Melena (2) Anemia Qualifiers: Anemia type: unspecified type Qualified Code(s): D64.9 - Anemia, unspecified
[2018-07-13] MEDS: Pantoprazole Inj 80 MG in Sodium Chlor 0.9% Inj 100 ML IV.CONT SCH (17:34)
[2018-07-13] MEDS: Metoprolol Tartrate 50 MG Tablet PO SCH (21:31)
--- NOTE | 2018-07-13 22:26 | ECG ---
Date Performed: 07/13/2018 Time Performed: 09:42:11 PTAGE: 78 years EKG: Sinus rhythm LEFT BUNDLE BRANCH BLOCK ABNORMAL ECG NO PREVIOUS TRACING Compared to previous tracing, LBBB is new DOCTOR: Sandip Gramajo Interpretating Date/Time 07/13/2018 22:25:01
[2018-07-14 00:02] LABS: Hemoglobin 5.7 gm/dL (13.0-17.0)
[2018-07-14 00:03] LABS: Hematocrit 16.8 % (39.0-51.0)
[2018-07-14] MEDS ORDERED: Sodium Chlor 0.9% Inj 250 ML IV.SIG SCH (01:00)
[2018-07-14] MEDS: Sod Chloride 0.9% Inj 1,000 ML IV.CONT SCH ×4 (01:11→19:43)
[2018-07-14] MEDS: Pantoprazole Inj 80 MG in Sodium Chlor 0.9% Inj 100 ML IV.CONT SCH ×6 (04:12→23:48)
[2018-07-14 06:49] LABS: Baso % (Auto) 0.1 % (0.0-2.0); Eos % (Auto) 0.2 % (0.0-4.0); Hematocrit 21.1 % (39.0-51.0); Hemoglobin 7.4 gm/dL (13.0-17.0); Lymph # (Auto) 1.3 th/mm3 (1.0-4.8); Lymph % (Auto) 7.4 % (9.0-44.0); Mean Corpuscular HGB Conc 35.1 % (32.0-36.0); Mean Corpuscular Hemoglobin 33.2 pg (27.0-34.0); Mean Corpuscular Volume 94.6 fL (80.0-100.0); Mean Platelet Volume 8.8 fL (7.0-11.0); Mono # (Auto) 1.6 th/mm3 (0.0-0.9); Mono % (Auto) 9.3 % (0.0-8.0); Neut # (Auto) 14.2 th/mm3 (1.8-7.7); Platelet Count 207 th/mm3 (150-450); Red Blood Count 2.23 mil/mm3 (4.50-5.90); Red Cell Distribution Width 14.8 % (11.6-17.2); White Blood Count 17.2 th/mm3 (4.0-11.0)
[2018-07-14 07:23] LABS: Calcium 7.5 mg/dL (8.5-10.1); Carbon Dioxide 25.6 meq/L (21.0-32.0); Potassium 3.1 meq/L (3.5-5.1)
[2018-07-14] MEDS: Metoprolol Tartrate 50 MG Tablet PO SCH ×2 (09:07→20:49)
[2018-07-14] MEDS: Levothyroxine 125 MCG Tablet PO SCH (09:07)
[2018-07-14] MEDS: Insulin NovoLOG Aspart Correctional Sugar Inj SQ SCH ×4 (09:11→20:50)
--- NOTE | 2018-07-14 12:42 | P.PN ---
Subjective Interval history: Follow-up GI bleed/anemia of acute blood loss July 14, 2018-patient seen and examined, currently in two-point restraints are alert and oriented to self however some confusion and agitation. Physical Exam Vital signs: Vital Signs 07/13/18 12:47 07/13/18 15:49 07/13/18 16:30 Temperature 98.3 F 98.0 F Pulse Rate 77 90 83 Respiratory Rate 15 18 Blood Pressure 120/76 144/46 H Pulse Oximetry 99 07/13/18 19:00 07/13/18 19:56 07/13/18 20:00 Temperature 98.4 F Pulse Rate 81 82 71 Respiratory Rate 16 Blood Pressure 116/44 L Pulse Oximetry 100 100 07/13/18 20:30 07/13/18 21:00 07/13/18 21:21 Temperature 98.4 F Pulse Rate 82 63 Respiratory Rate 17 Blood Pressure 107/55 L Pulse Oximetry 100 98 07/13/18 22:00 07/13/18 23:00 07/14/18 00:00 Temperature 98.4 F Pulse Rate 66 57 L 60 Respiratory Rate 17 Blood Pressure 107/55 L Pulse Oximetry 100 07/14/18 01:00 07/14/18 01:04 07/14/18 01:16 Temperature 97.8 F 97.9 F Pulse Rate 83 62 69 Respiratory Rate 18 18 Blood Pressure 107/49 L 104/49 L Pulse Oximetry 98 93 L 07/14/18 02:00 07/14/18 03:00 07/14/18 04:00 Temperature 98.4 F Pulse Rate 64 69 68 Respiratory Rate 17 Blood Pressure 121/55 L Pulse Oximetry 100 07/14/18 05:00 07/14/18 06:00 07/14/18 07:00 Temperature Pulse Rate 82 75 65 Respiratory Rate Blood Pressure Pulse Oximetry 07/14/18 08:00 07/14/18 09:00 07/14/18 10:00 Temperature 98.4 F Pulse Rate 70 75 73 Respiratory Rate 18 Blood Pressure 122/46 L Pulse Oximetry 100 07/14/18 12:00 Temperature 97.9 F Pulse Rate 60 Respiratory Rate 18 Blood Pressure 105/57 L Pulse Oximetry 100 Intake & Output 07/13/18 07/14/18 07/14/18 18:59 06:59 18:59 Intake Total 1917 / 1918 2070.0 / 2070.0 Output Total 950 / 950 950 / 950 Balance 968 / 968 1120.0 / 1120.0 Weight 74.843 kg 74.7 kg Intake: IV 1400 / 1400 1150.0 / 1150.0 Protonix Inj 80 MG In NS Inj 100.0 / 100.0 100 ML @ 10 mls/hr IV.CONT Q10H [facility] Rx#:[id number] NS Inj 1,000 ML @ 125 mls/hr IV 1000 / 1000 .CONT .Q8H [facility]A Rx#:[id number] Zosyn 3.375 GM Premix 50 ML @ 50 / 50 100 mls/hr IV.SIG ONCE ONE Rx#: [id number] NS Inj 1,000 ML @ 2000 mls/hr 1000 / 1000 IV.SIG Q30M [facility] Rx#:[id number] NS Inj 250 ML @ 15 mls/hr IV. 50 / 50 SIG ONCE [facility] Rx#:[id number] Vancomycin Inj 1,000 MG In NS 250 / 250 Inj 250 ML @ 250 mls/hr IV.SIG [employer] [facility] Rx#:[id number] Rocephin Inj 1,000 MG In NS Inj 100 / 100 100 ML @ 200 mls/hr IV.SIG Q24H [facility] Rx#:[id number] Oral 118 / 118 120 / 120 Intake (Blood Product) Amt 400 / 400 800 / 800 Rbc As-3 Leukoreduced Unit 0 / 0 400 / 400 [id number] Rbc As-3 Leukoreduced Unit 400 / 400 [id number] Rbc As-3 Leukoreduced Unit 400 / 400 [id number] Output: Urine 950 / 950 950 / 950 Narrative: GENERAL: This is a well-nourished, well-developed patient with two-point restraints to upper extremities SKIN: No rashes, ecchymoses or lesions. Warm and dry. HEAD: Atraumatic. Normocephalic. No temporal or scalp tenderness. EYES: Pupils equal round and reactive. No injection or drainage. ENT: Nose without bleeding, purulent drainage or septal hematoma. Airway patent. NECK: Trachea midline. No lymphadenopathy. Supple, nontender, no meningeal signs. CARDIOVASCULAR: Regular rate and rhythm without murmurs, gallops, or rubs. No JVD. RESPIRATORY: Clear to auscultation. Breath sounds equal bilaterally. No wheezes , rales, or rhonchi. GASTROINTESTINAL: Abdomen soft, non-tender, nondistended. No guarding. PEG tube in place MUSCULOSKELETAL: Extremities without clubbing, cyanosis. Lower extremity 1+ edema. Chronic Morfin catheter is in place. NEUROLOGICAL: Awake and alert. Cranial nerves II through XII intact. No focal neurological deficits. Normal speech. - Urinary Catheter Management Suprapubic Cath placed during this visit: no Reason for continuing: Hourly intake/output Results - Labs CBC & Chem 7: 07/14/18 06:08 07/14/18 06:08 Laboratory Results - last 24 hr 07/13/18 07/13/18 07/13/18 10:05 10:20 16:40 WBC RBC Hgb Hct MCV MCH MCHC RDW Plt Count MPV Neut % (Auto) Lymph % (Auto) [place] % (Auto) Eos % (Auto) Baso % (Auto) Neut # (Auto) Lymph # (Auto) [place] # (Auto) Eos # (Auto) Baso # (Auto) WBC Differential Differential Comment Sodium Potassium Chloride Carbon Dioxide Anion Gap BUN Creatinine Estimated GFR POC Glucose Random Glucose Lactic Acid 2.7 H Calcium Iron 22 L TIBC 269 % Saturation 8.2 L Ferritin 28 Folate 10.1 Blood Type O Positive Antibody Screen Negative MTS Gel Crossmatch See Detail 07/13/18 07/13/18 07/13/18 17:38 21:30 23:49 WBC RBC Hgb 5.7 L* D Hct 16.8 L* MCV MCH MCHC RDW Plt Count MPV Neut % (Auto) Lymph % (Auto) [place] % (Auto) Eos % (Auto) Baso % (Auto) Neut # (Auto) Lymph # (Auto) [place] # (Auto) Eos # (Auto) Baso # (Auto) WBC Differential Differential Comment Sodium Potassium Chloride Carbon Dioxide Anion Gap BUN Creatinine Estimated GFR POC Glucose 169 H 153 H Random Glucose Lactic Acid Calcium Iron TIBC % Saturation Ferritin Folate Blood Type Antibody Screen MTS Gel Crossmatch 07/14/18 07/14/18 07/14/18 00:21 06:08 06:08 WBC 17.2 H RBC 2.23 L Hgb 7.4 L Hct 21.1 L MCV 94.6 MCH 33.2 MCHC 35.1 RDW 14.8 Plt Count 207 MPV 8.8 Neut % (Auto) 83.0 H Lymph % (Auto) 7.4 L [place] % (Auto) 9.3 H Eos % (Auto) 0.2 Baso % (Auto) 0.1 Neut # (Auto) 14.2 H Lymph # (Auto) 1.3 [place] # (Auto) 1.6 H Eos # (Auto) 0.0 Baso # (Auto) 0.0 WBC Differential . Differential Comment Auto diff final Sodium 145 Potassium 3.1 L D Chloride 111 H Carbon Dioxide 25.6 Anion Gap 8 BUN 48 H Creatinine 0.92 Estimated GFR 80 L POC Glucose Random Glucose 144 H Lactic Acid Calcium 7.5 L Iron TIBC % Saturation Ferritin Folate Blood Type Antibody Screen MTS Gel Crossmatch See Detail 07/14/18 09:11 WBC RBC Hgb Hct MCV MCH MCHC RDW Plt Count MPV Neut % (Auto) Lymph % (Auto) [place] % (Auto) Eos % (Auto) Baso % (Auto) Neut # (Auto) Lymph # (Auto) [place] # (Auto) Eos # (Auto) Baso # (Auto) WBC Differential Differential Comment Sodium Potassium Chloride Carbon Dioxide Anion Gap BUN Creatinine Estimated GFR POC Glucose 148 H Random Glucose Lactic Acid Calcium Iron TIBC % Saturation Ferritin Folate Blood Type Antibody Screen MTS Gel Crossmatch Microbiology 07/13/18 09:55 Blood - Peripheral Aerobic Blood Culture - Preliminary No growth in 1 day 07/13/18 09:55 Blood - Peripheral Anaerobic Blood Culture - Preliminary No growth in 1 day 07/13/18 10:05 Blood - Peripheral Aerobic Blood Culture - Preliminary No growth in 1 day 07/13/18 10:05 Blood - Peripheral Anaerobic Blood Culture - Preliminary No growth in 1 day Assessment and Plan - Plan 78-year-old man with GI bleed Acute symptomatic anemia due to GI blood loss -Appreciate input from gastroenterology who plan EGD with possible colonoscopy -Continue with PPI drip -Transfuse accordingly Avoid NSAIDs including aspirin. Possible urinary tract infection Continue with ceftriaxone 1 g daily. Follow urine culture results. Hypothyroidism Hyperlipidemia Diabetes mellitus Continue levothyroxine 125 mcg daily, statin. Sliding scale insulin.
--- NOTE | 2018-07-14 13:32 | GIPROC ---
[facility] [address] [facility]. [facility], [address] EGD PROCEDURE REPORT EXAM DATE: 07/14/2018 PATIENT NAME: Derick Lin MR #: [id number] BIRTHDATE: 1940 ATTENDING: Gloria Herndon MD ORDER #: [id number] FLORAL MANAGER: Leanne Negro and Nadia Polanco STATUS: inpatient INDICATIONS: The patient is a 78 yr old male here for an EGD due to anemia PROCEDURE PERFORMED: EGD w/ biopsy MEDICATIONS: Per Anesthesia and None. TOPICAL ANESTHETIC: none CONSENT: The patient understands the risks and benefits of the procedure and understands that these risks include, but are not limited to: sedation, allergic reaction, infection, perforation and/or bleeding. Alternative means of evaluation and treatment include, among others: physical exam, x-rays, and/or surgical intervention. The patient elects to proceed with this endoscopic procedure. medical equipment was checked for proper function. Hand hygiene and appropriate measures for infection prevention was taken. After the risks, benefits and alternatives of the procedure were thoroughly explained, Informed consent was verified, confirmed and timeout was successfully executed by the treatment team. The patient was anesthetized with topical anesthesia and the Pentax EG-[id number] endoscope was introduced through the mouth and advanced to the second portion of the duodenum. Retroflexion was performed and was normal The gastroscope was then slowly withdrawn and removed. ESOPHAGUS: The mucosa of the esophagus appeared normal. STOMACH: Multiple small shallow erosions were found in the gastric antrum. Multiple biopsies was performed using cold forceps. Sample sent for histology. DUODENUM: A large non-bleeding non-bleeding, round, deep and clean-based ulcer was found in the duodenal bulb. ADVERSE EVENTS: There were no complications. IMPRESSIONS: 1. The esophagus appeared normal 2. Multiple small erosions were found in the gastric antrum; multiple biopsies was performed 3. Large non-bleeding ulcer was found in the duodenal bulb 4. Retroflexion was performed and was normal RECOMMENDATIONS: 1. Await biopsy results. Biopsy results will not be ready for 7-10 days. If you don't hear from us in two weeks, call our office for biopsy results. 2. Continue PPI PATIENT CONDITION: stable DISPOSITION: Observation REPEAT EXAM: NONE Gloria Herndon MD eSigned: Gloria Herndon MD 07/14/2018 1:31 PM cc: PATIENT NAME: Derick Lin MR#: [id number]
[2018-07-15] MEDS: Sod Chloride 0.9% Inj 1,000 ML IV.CONT SCH ×4 (00:54→20:44)
[2018-07-15] MEDS: Pantoprazole Inj 80 MG in Sodium Chlor 0.9% Inj 100 ML IV.CONT SCH ×2 (05:05→09:22)
[2018-07-15] MEDS ORDERED: Haloperidol Inj 5 MG/ML Ampul IM ONE (06:26)
[2018-07-15] MEDS: Metoprolol Tartrate 50 MG Tablet PO SCH ×2 (08:53→20:41)
[2018-07-15] MEDS: Insulin NovoLOG Aspart Correctional Sugar Inj SQ SCH ×4 (08:53→20:44)
[2018-07-15] MEDS: Levothyroxine 125 MCG Tablet PO SCH (08:53)
[2018-07-15 11:01] LABS: Baso % (Auto) 0.3 % (0.0-2.0); Eos % (Auto) 0.1 % (0.0-4.0); Hematocrit 21.5 % (39.0-51.0); Hemoglobin 7.6 gm/dL (13.0-17.0); Lymph # (Auto) 0.7 th/mm3 (1.0-4.8); Lymph % (Auto) 5.4 % (9.0-44.0); Mean Corpuscular HGB Conc 35.4 % (32.0-36.0); Mean Corpuscular Hemoglobin 34.2 pg (27.0-34.0); Mean Corpuscular Volume 96.4 fL (80.0-100.0); Mean Platelet Volume 8.3 fL (7.0-11.0); Mono # (Auto) 1.3 th/mm3 (0.0-0.9); Mono % (Auto) 9.6 % (0.0-8.0); Neut # (Auto) 11.4 th/mm3 (1.8-7.7); Neut % (Auto) 84.6 % (16.0-70.0); Platelet Count 244 th/mm3 (150-450); Red Blood Count 2.23 mil/mm3 (4.50-5.90); Red Cell Distribution Width 16.1 % (11.6-17.2); White Blood Count 13.5 th/mm3 (4.0-11.0)
[2018-07-15 11:22] LABS: Albumin 2.5 g/dL (3.4-5.0); Anion Gap 8 meq/L (5-15); Aspartate Aminotransferase 55 U/L (15-37); Blood Urea Nitrogen 22 mg/dL (7-18); Calcium 7.6 mg/dL (8.5-10.1); Carbon Dioxide 26.3 meq/L (21.0-32.0); Chloride 109 meq/L (98-107); Glomerular Filtration Rate Greater Than 89 mL/min (>89); Glucose,Random 134 mg/dL (74-106); Potassium 3.5 meq/L (3.5-5.1); Sodium 143 meq/L (136-145)
[2018-07-15 11:23] LABS: Alanine Aminotransferase 25 U/L (12-78)
[2018-07-15 11:26] LABS: Alkaline Phosphatase 48 U/L (45-117); Total Protein 5.4 g/dL (6.4-8.2)
--- NOTE | 2018-07-15 12:13 | P.PN ---
Subjective Interval history: Follow-up GI bleed/anemia of acute blood loss July 14, 2018-patient seen and examined, currently in two-point restraints are alert and oriented to self however some confusion and agitation. July 15, 2018-patient seen and examined, still with open restraints; by the bedside. s/p EGD 07/14/18 and currently without any bleeding episode Physical Exam Vital signs: Vital Signs 07/14/18 13:45 07/14/18 15:00 07/14/18 16:00 Temperature 98.3 F 98.2 F Pulse Rate 61 59 L 61 Respiratory Rate 18 18 Blood Pressure 100/52 L 130/57 L Pulse Oximetry 100 100 07/14/18 17:00 07/14/18 18:00 07/14/18 19:00 Temperature Pulse Rate 76 112 H 103 H Respiratory Rate Blood Pressure Pulse Oximetry 07/14/18 20:00 07/14/18 21:00 07/14/18 22:00 Temperature 97.9 F Pulse Rate 94 H 86 67 Respiratory Rate 16 Blood Pressure 130/59 L Pulse Oximetry 92 L 07/14/18 23:00 07/15/18 00:00 07/15/18 01:00 Temperature 98.1 F Pulse Rate 62 57 L 59 L Respiratory Rate 16 Blood Pressure 103/53 L Pulse Oximetry 100 07/15/18 02:00 07/15/18 03:00 07/15/18 04:00 Temperature 98 F Pulse Rate 60 61 54 L Respiratory Rate 18 Blood Pressure 122/54 L Pulse Oximetry 100 07/15/18 05:00 07/15/18 06:00 07/15/18 07:00 Temperature Pulse Rate 57 L 62 76 Respiratory Rate Blood Pressure Pulse Oximetry 07/15/18 08:00 07/15/18 09:00 07/15/18 10:00 Temperature 98.4 F Pulse Rate 82 72 58 L Respiratory Rate 18 Blood Pressure 155/66 H Pulse Oximetry 100 07/15/18 11:00 07/15/18 12:00 Temperature 98.3 F Pulse Rate 59 L 58 L Respiratory Rate 18 Blood Pressure 128/64 Pulse Oximetry 100 Intake & Output 07/14/18 07/15/18 07/15/18 18:59 06:59 18:59 Intake Total 1020 / 1020 790 / 790 100 / 100 Output Total 600 / 600 825 / 825 Balance 420 / 420 -35 / -35 100 / 100 Weight 74.6 kg Intake: IV 200 / 200 550 / 550 100 / 100 Protonix Inj 80 MG In NS Inj 100 / 100 100 / 100 100 / 100 100 ML @ 10 mls/hr IV.CONT Q10H [facility] Rx#:[id number] NS Inj 250 ML @ 15 mls/hr IV. 250 / 250 SIG ONCE ISADORA Rx#:[id number] Rocephin Inj 1,000 MG In NS Inj 100 / 100 100 ML @ 200 mls/hr IV.SIG Q24H ISAD[facility]A Rx#:[id number] Oral 720 / 720 240 / 240 Anesthesia Amount 100 / 100 Output: Urine Amount (Catheter) 600 / 600 825 / 825 Suprapubic 600 / 600 825 / 825 Other: Date of Last Bowel Movement 07/10/18 07/10/18 Narrative: GENERAL: This is a well-nourished, well-developed patient with four-point restraints to upper extremities SKIN: No rashes, ecchymoses or lesions. Warm and dry. HEAD: Atraumatic. Normocephalic. No temporal or scalp tenderness. EYES: Pupils equal round and reactive. No injection or drainage. ENT: Nose without bleeding, purulent drainage or septal hematoma. Airway patent. NECK: Trachea midline. No lymphadenopathy. Supple, nontender, no meningeal signs. CARDIOVASCULAR: Regular rate and rhythm without murmurs, gallops, or rubs. No JVD. RESPIRATORY: Clear to auscultation. Breath sounds equal bilaterally. No wheezes , rales, or rhonchi. GASTROINTESTINAL: Abdomen soft, non-tender, nondistended. No guarding. Nephrostomy tube in place MUSCULOSKELETAL: Extremities without clubbing, cyanosis. Lower extremity 1+ edema. Chronic Morfin catheter is in place. NEUROLOGICAL: Awake and alert. Cranial nerves II through XII intact. No focal neurological deficits. Normal speech. - Urinary Catheter Management Suprapubic Cath placed during this visit: no Reason for continuing: Hourly intake/output Results - Labs CBC & Chem 7: 07/15/18 10:49 07/15/18 10:49 Laboratory Results - last 24 hr 07/13/18 07/14/18 07/14/18 10:30 12:31 17:11 WBC RBC Hgb Hct MCV MCH MCHC RDW Plt Count MPV Neut % (Auto) Lymph % (Auto) [place] % (Auto) Eos % (Auto) Baso % (Auto) Neut # (Auto) Lymph # (Auto) [place] # (Auto) Eos # (Auto) Baso # (Auto) WBC Differential Differential Comment Sodium Potassium Chloride Carbon Dioxide Anion Gap BUN Creatinine Estimated GFR POC Glucose 167 H 182 H Random Glucose Calcium Total Bilirubin AST ALT Alkaline Phosphatase Total Protein Albumin Urine Color Yellow Urine Clarity Hazy H Urine pH 5.0 Ur Specific [place] 1.018 Urine Protein Negative Urine Glucose (UA) Negative Urine Ketones Negative Urine Occult Blood Negative Urine Nitrate Positive H Urine Bilirubin Negative Urine Urobilinogen Less than 2 Ur Leukocyte Esterase Moderate H Urine RBC 5 H Urine WBC 29 H Urine Bacteria Many H Urine Mucus Moderate H Urine Yeast Few H Ur Yeast w [place] Rare H Micro UA Comment Cath-culture ind Urine Culture Comments Cath-cult indicated 07/14/18 07/15/18 07/15/18 20:17 08:52 10:49 WBC 13.5 H RBC 2.23 L Hgb 7.6 L Hct 21.5 L MCV 96.4 MCH 34.2 H MCHC 35.4 RDW 16.1 Plt Count 244 MPV 8.3 Neut % (Auto) 84.6 H Lymph % (Auto) 5.4 L [place] % (Auto) 9.6 H Eos % (Auto) 0.1 Baso % (Auto) 0.3 Neut # (Auto) 11.4 H Lymph # (Auto) 0.7 L [place] # (Auto) 1.3 H Eos # (Auto) 0.0 Baso # (Auto) 0.0 WBC Differential . Differential Comment Auto diff final Sodium Potassium Chloride Carbon Dioxide Anion Gap BUN Creatinine Estimated GFR POC Glucose 200 H 127 H Random Glucose Calcium Total Bilirubin AST ALT Alkaline Phosphatase Total Protein Albumin Urine Color Urine Clarity Urine pH Ur Specific [place] Urine Protein Urine Glucose (UA) Urine Ketones Urine Occult Blood Urine Nitrate Urine Bilirubin Urine Urobilinogen Ur Leukocyte Esterase Urine RBC Urine WBC Urine Bacteria Urine Mucus Urine Yeast Ur Yeast w [place] Micro UA Comment Urine Culture Comments 07/15/18 10:49 WBC RBC Hgb Hct MCV MCH MCHC RDW Plt Count MPV Neut % (Auto) Lymph % (Auto) [place] % (Auto) Eos % (Auto) Baso % (Auto) Neut # (Auto) Lymph # (Auto) [place] # (Auto) Eos # (Auto) Baso # (Auto) WBC Differential Differential Comment Sodium 143 Potassium 3.5 Chloride 109 H Carbon Dioxide 26.3 Anion Gap 8 BUN 22 H Creatinine 0.75 Estimated GFR Greater than 89 POC Glucose Random Glucose 134 H Calcium 7.6 L Total Bilirubin 0.7 AST 55 H ALT 25 Alkaline Phosphatase 48 Total Protein 5.4 L Albumin 2.5 L Urine Color Urine Clarity Urine pH Ur Specific [place] Urine Protein Urine Glucose (UA) Urine Ketones Urine Occult Blood Urine Nitrate Urine Bilirubin Urine Urobilinogen Ur Leukocyte Esterase Urine RBC Urine WBC Urine Bacteria Urine Mucus Urine Yeast Ur Yeast w [place] Micro UA Comment Urine Culture Comments Microbiology 07/13/18 09:55 Blood - Peripheral Aerobic Blood Culture - Preliminary No growth in 2 days 07/13/18 09:55 Blood - Peripheral Anaerobic Blood Culture - Preliminary No growth in 2 days 07/13/18 10:05 Blood - Peripheral Aerobic Blood Culture - Preliminary No growth in 2 days 07/13/18 10:05 Blood - Peripheral Anaerobic Blood Culture - Preliminary No growth in 2 days 07/13/18 10:30 Catheterized Urine Urine Culture - Preliminary Escherichia coli ESBL positive gram negative rods Assessment and Plan - Plan 78-year-old man with GI bleed Acute symptomatic anemia due to GI blood loss -Appreciate input from gastroenterology and s/p EGD 07/14/18 pending biopsy report. See report of EGD -d/c PPI drip and start PPI BID -Will transfuse 1 unit PRBC 07/15/18 Avoid NSAIDs including aspirin. Urinary tract infection Metabolic encephalopathy History of Nephrostomy tube Currently on ceftriaxone 1 g daily. Urine culture positive for ESBL Will consult Infectious disease specialist -Patient has an appointment with Urology next week 07/18/18 for nephrostomy tube exchange, however may consider urology consultation now -Consider CT abdomen/pelvics for further evaluation Hypothyroidism Hyperlipidemia Diabetes mellitus Continue levothyroxine 125 mcg daily, statin. Sliding scale insulin.
[2018-07-15] MEDS ORDERED: Acetaminophen 325 MG Tablet PO PRN (12:17)
--- NOTE | 2018-07-15 12:37 | P.PNGI ---
Subjective Interval history: Patient awake and alert sitting up in bed. Confused, denies abdominal pain or nausea vomiting. Bedside RN denies any noted bleeding. <Maida Cook - Last Filed: 07/15/18 12:32> Physical Exam Vital signs: Vital Signs 07/14/18 13:45 07/14/18 15:00 07/14/18 16:00 Temperature 98.3 F 98.2 F Pulse Rate 61 59 L 61 Respiratory Rate 18 18 Blood Pressure 100/52 L 130/57 L Pulse Oximetry 100 100 07/14/18 17:00 07/14/18 18:00 07/14/18 19:00 Temperature Pulse Rate 76 112 H 103 H Respiratory Rate Blood Pressure Pulse Oximetry 07/14/18 20:00 07/14/18 21:00 07/14/18 22:00 Temperature 97.9 F Pulse Rate 94 H 86 67 Respiratory Rate 16 Blood Pressure 130/59 L Pulse Oximetry 92 L 07/14/18 23:00 07/15/18 00:00 07/15/18 01:00 Temperature 98.1 F Pulse Rate 62 57 L 59 L Respiratory Rate 16 Blood Pressure 103/53 L Pulse Oximetry 100 07/15/18 02:00 07/15/18 03:00 07/15/18 04:00 Temperature 98 F Pulse Rate 60 61 54 L Respiratory Rate 18 Blood Pressure 122/54 L Pulse Oximetry 100 07/15/18 05:00 07/15/18 06:00 07/15/18 07:00 Temperature Pulse Rate 57 L 62 76 Respiratory Rate Blood Pressure Pulse Oximetry 07/15/18 08:00 07/15/18 09:00 07/15/18 10:00 Temperature 98.4 F Pulse Rate 82 72 58 L Respiratory Rate 18 Blood Pressure 155/66 H Pulse Oximetry 100 07/15/18 11:00 07/15/18 12:00 Temperature 98.3 F Pulse Rate 59 L 58 L Respiratory Rate 18 Blood Pressure 128/64 Pulse Oximetry 100 Intake & Output 07/14/18 07/15/18 07/15/18 18:59 06:59 18:59 Intake Total 1020 / 1020 790 / 790 100 / 100 Output Total 600 / 600 825 / 825 Balance 420 / 420 -35 / -35 100 / 100 Weight 74.6 kg Intake: IV 200 / 200 550 / 550 100 / 100 Protonix Inj 80 MG In NS Inj 100 / 100 100 / 100 100 / 100 100 ML @ 10 mls/hr IV.CONT Q10H [facility] Rx#:[id number] NS Inj 250 ML @ 15 mls/hr IV. 250 / 250 SIG ONCE [facility] Rx#:[id number] Rocephin Inj 1,000 MG In NS Inj 100 / 100 100 ML @ 200 mls/hr IV.SIG Q24H [facility] Rx#:[id number] Oral 720 / 720 240 / 240 Anesthesia Amount 100 / 100 Output: Urine Amount (Catheter) 600 / 600 825 / 825 Suprapubic 600 / 600 825 / 825 Other: Date of Last Bowel Movement 07/10/18 07/10/18 - Constitutional no acute distress, chronically ill appearing - Routine HEENT Exam Head: Present: normocephalic - Routine Respiratory Exam Present: CTA bilaterally - Routine Cardiovascular Exam Present: RRR - Routine Abdominal Exam Present: soft, normoactive bowel sounds. Absent: tenderness, distended, guarding, firm - Routine Skin Exam Present: dry, warm - Routine Neurological Exam Present: alert, altered mental status - Urinary Catheter Management Suprapubic Cath placed during this visit: no Reason for continuing: Hourly intake/output <Maida Cook - Last Filed: 07/15/18 12:32> Vital signs: Vital Signs 07/14/18 15:00 07/14/18 16:00 07/14/18 17:00 Temperature 98.2 F Pulse Rate 59 L 61 76 Respiratory Rate 18 Blood Pressure 130/57 L Pulse Oximetry 100 07/14/18 18:00 07/14/18 19:00 07/14/18 20:00 Temperature 97.9 F Pulse Rate 112 H 103 H 94 H Respiratory Rate 16 Blood Pressure 130/59 L Pulse Oximetry 92 L 07/14/18 21:00 07/14/18 22:00 07/14/18 23:00 Temperature Pulse Rate 86 67 62 Respiratory Rate Blood Pressure Pulse Oximetry 07/15/18 00:00 07/15/18 01:00 07/15/18 02:00 Temperature 98.1 F Pulse Rate 57 L 59 L 60 Respiratory Rate 16 Blood Pressure 103/53 L Pulse Oximetry 100 07/15/18 03:00 07/15/18 04:00 07/15/18 05:00 Temperature 98 F Pulse Rate 61 54 L 57 L Respiratory Rate 18 Blood Pressure 122/54 L Pulse Oximetry 100 07/15/18 06:00 07/15/18 07:00 07/15/18 08:00 Temperature 98.4 F Pulse Rate 62 76 82 Respiratory Rate 18 Blood Pressure 155/66 H Pulse Oximetry 100 07/15/18 09:00 07/15/18 10:00 07/15/18 11:00 Temperature Pulse Rate 72 58 L 59 L Respiratory Rate Blood Pressure Pulse Oximetry 07/15/18 12:00 Temperature 98.3 F Pulse Rate 58 L Respiratory Rate 18 Blood Pressure 128/64 Pulse Oximetry 100 Intake & Output 07/14/18 07/15/18 07/15/18 18:59 06:59 18:59 Intake Total 1020 / 1020 790 / 790 100 / 100 Output Total 600 / 600 825 / 825 Balance 420 / 420 -35 / -35 100 / 100 Weight 74.6 kg Intake: IV 200 / 200 550 / 550 100 / 100 Protonix Inj 80 MG In NS Inj 100 / 100 100 / 100 100 / 100 100 ML @ 10 mls/hr IV.CONT Q10H [facility] Rx#:[id number] NS Inj 250 ML @ 15 mls/hr IV. 250 / 250 SIG ONCE [facility] Rx#:[id number] Rocephin Inj 1,000 MG In NS Inj 100 / 100 100 ML @ 200 mls/hr IV.SIG Q24H [facility] Rx#:[id number] Oral 720 / 720 240 / 240 Anesthesia Amount 100 / 100 Output: Urine Amount (Catheter) 600 / 600 825 / 825 Suprapubic 600 / 600 825 / 825 Other: Date of Last Bowel Movement 07/10/18 07/10/18 - Urinary Catheter Management Suprapubic Cath placed during this visit: no <Gloria Herndon - Last Filed: 07/15/18 14:16> Results - Labs CBC & Chem 7: 07/15/18 10:49 07/15/18 10:49 Laboratory Results - last 24 hr 07/13/18 07/14/18 07/14/18 10:30 12:31 17:11 WBC RBC Hgb Hct MCV MCH MCHC RDW Plt Count MPV Neut % (Auto) Lymph % (Auto) [place] % (Auto) Eos % (Auto) Baso % (Auto) Neut # (Auto) Lymph # (Auto) [place] # (Auto) Eos # (Auto) Baso # (Auto) WBC Differential Differential Comment Sodium Potassium Chloride Carbon Dioxide Anion Gap BUN Creatinine Estimated GFR POC Glucose 167 H 182 H Random Glucose Calcium Total Bilirubin AST ALT Alkaline Phosphatase Total Protein Albumin Urine Color Yellow Urine Clarity Hazy H Urine pH 5.0 Ur Specific [place] 1.018 Urine Protein Negative Urine Glucose (UA) Negative Urine Ketones Negative Urine Occult Blood Negative Urine Nitrate Positive H Urine Bilirubin Negative Urine Urobilinogen Less than 2 Ur Leukocyte Esterase Moderate H Urine RBC 5 H Urine WBC 29 H Urine Bacteria Many H Urine Mucus Moderate H Urine Yeast Few H Ur Yeast w [place]pha[place] Rare H Micro UA Comment Cath-culture ind Urine Culture Comments Cath-cult indicated MTS Gel Crossmatch 07/14/18 07/15/18 07/15/18 20:17 08:52 10:49 WBC 13.5 H RBC 2.23 L Hgb 7.6 L Hct 21.5 L MCV 96.4 MCH 34.2 H MCHC 35.4 RDW 16.1 Plt Count 244 MPV 8.3 Neut % (Auto) 84.6 H Lymph % (Auto) 5.4 L [place] % (Auto) 9.6 H Eos % (Auto) 0.1 Baso % (Auto) 0.3 Neut # (Auto) 11.4 H Lymph # (Auto) 0.7 L [place] # (Auto) 1.3 H Eos # (Auto) 0.0 Baso # (Auto) 0.0 WBC Differential . Differential Comment Auto diff final Sodium Potassium Chloride Carbon Dioxide Anion Gap BUN Creatinine Estimated GFR POC Glucose 200 H 127 H Random Glucose Calcium Total Bilirubin AST ALT Alkaline Phosphatase Total Protein Albumin Urine Color Urine Clarity Urine pH Ur Specific [place] Urine Protein Urine Glucose (UA) Urine Ketones Urine Occult Blood Urine Nitrate Urine Bilirubin Urine Urobilinogen Ur Leukocyte Esterase Urine RBC Urine WBC Urine Bacteria Urine Mucus Urine Yeast Ur Yeast w [place]pha[place] Micro UA Comment Urine Culture Comments MTS Gel Crossmatch 07/15/18 07/15/18 10:49 12:23 WBC RBC Hgb Hct MCV MCH MCHC RDW Plt Count MPV Neut % (Auto) Lymph % (Auto) [place] % (Auto) Eos % (Auto) Baso % (Auto) Neut # (Auto) Lymph # (Auto) [place] # (Auto) Eos # (Auto) Baso # (Auto) WBC Differential Differential Comment Sodium 143 Potassium 3.5 Chloride 109 H Carbon Dioxide 26.3 Anion Gap 8 BUN 22 H Creatinine 0.75 Estimated GFR Greater than 89 POC Glucose Random Glucose 134 H Calcium 7.6 L Total Bilirubin 0.7 AST 55 H ALT 25 Alkaline Phosphatase 48 Total Protein 5.4 L Albumin 2.5 L Urine Color Urine Clarity Urine pH Ur Specific [place] Urine Protein Urine Glucose (UA) Urine Ketones Urine Occult Blood Urine Nitrate Urine Bilirubin Urine Urobilinogen Ur Leukocyte Esterase Urine RBC Urine WBC Urine Bacteria Urine Mucus Urine Yeast Ur Yeast w [place] Micro UA Comment Urine Culture Comments MTS Gel Crossmatch See Detail Microbiology 07/13/18 09:55 Blood - Peripheral Aerobic Blood Culture - Preliminary No growth in 2 days 07/13/18 09:55 Blood - Peripheral Anaerobic Blood Culture - Preliminary No growth in 2 days 07/13/18 10:05 Blood - Peripheral Aerobic Blood Culture - Preliminary No growth in 2 days 07/13/18 10:05 Blood - Peripheral Anaerobic Blood Culture - Preliminary No growth in 2 days 07/13/18 10:30 Catheterized Urine Urine Culture - Preliminary Escherichia coli ESBL positive gram negative rods <Maida Cook - Last Filed: 07/15/18 12:32> - Labs CBC & Chem 7: 07/15/18 10:49 07/15/18 10:49 Laboratory Results - last 24 hr 07/13/18 07/14/18 07/14/18 10:30 17:11 20:17 WBC RBC Hgb Hct MCV MCH MCHC RDW Plt Count MPV Neut % (Auto) Lymph % (Auto) [place] % (Auto) Eos % (Auto) Baso % (Auto) Neut # (Auto) Lymph # (Auto) [place] # (Auto) Eos # (Auto) Baso # (Auto) WBC Differential Differential Comment Sodium Potassium Chloride Carbon Dioxide Anion Gap BUN Creatinine Estimated GFR POC Glucose 182 H 200 H Random Glucose Calcium Total Bilirubin AST ALT Alkaline Phosphatase Total Protein Albumin Urine Color Yellow Urine Clarity Hazy H Urine pH 5.0 Ur Specific [place] 1.018 Urine Protein Negative Urine Glucose (UA) Negative Urine Ketones Negative Urine Occult Blood Negative Urine Nitrate Positive H Urine Bilirubin Negative Urine Urobilinogen Less than 2 Ur Leukocyte Esterase Moderate H Urine RBC 5 H Urine WBC 29 H Urine Bacteria Many H Urine Mucus Moderate H Urine Yeast Few H Ur Yeast w [place] Rare H Micro UA Comment Cath-culture ind Urine Culture Comments Cath-cult indicated MTS Gel Crossmatch 07/15/18 07/15/18 07/15/18 08:52 10:49 10:49 WBC 13.5 H RBC 2.23 L Hgb 7.6 L Hct 21.5 L MCV 96.4 MCH 34.2 H MCHC 35.4 RDW 16.1 Plt Count 244 MPV 8.3 Neut % (Auto) 84.6 H Lymph % (Auto) 5.4 L [place] % (Auto) 9.6 H Eos % (Auto) 0.1 Baso % (Auto) 0.3 Neut # (Auto) 11.4 H Lymph # (Auto) 0.7 L [place] # (Auto) 1.3 H Eos # (Auto) 0.0 Baso # (Auto) 0.0 WBC Differential . Differential Comment Auto diff final Sodium 143 Potassium 3.5 Chloride 109 H Carbon Dioxide 26.3 Anion Gap 8 BUN 22 H Creatinine 0.75 Estimated GFR Greater than 89 POC Glucose 127 H Random Glucose 134 H Calcium 7.6 L Total Bilirubin 0.7 AST 55 H ALT 25 Alkaline Phosphatase 48 Total Protein 5.4 L Albumin 2.5 L Urine Color Urine Clarity Urine pH Ur Specific [place] Urine Protein Urine Glucose (UA) Urine Ketones Urine Occult Blood Urine Nitrate Urine Bilirubin Urine Urobilinogen Ur Leukocyte Esterase Urine RBC Urine WBC Urine Bacteria Urine Mucus Urine Yeast Ur Yeast w [place] Micro UA Comment Urine Culture Comments MTS Gel Crossmatch 07/15/18 07/15/18 12:23 12:33 WBC RBC Hgb Hct MCV MCH MCHC RDW Plt Count MPV Neut % (Auto) Lymph % (Auto) [place] % (Auto) Eos % (Auto) Baso % (Auto) Neut # (Auto) Lymph # (Auto) [place] # (Auto) Eos # (Auto) Baso # (Auto) WBC Differential Differential Comment Sodium Potassium Chloride Carbon Dioxide Anion Gap BUN Creatinine Estimated GFR POC Glucose 136 H Random Glucose Calcium Total Bilirubin AST ALT Alkaline Phosphatase Total Protein Albumin Urine Color Urine Clarity Urine pH Ur Specific [place] Urine Protein Urine Glucose (UA) Urine Ketones Urine Occult Blood Urine Nitrate Urine Bilirubin Urine Urobilinogen Ur Leukocyte Esterase Urine RBC Urine WBC Urine Bacteria Urine Mucus Urine Yeast Ur Yeast w [place] Micro UA Comment Urine Culture Comments MTS Gel Crossmatch See Detail Microbiology 07/13/18 09:55 Blood - Peripheral Aerobic Blood Culture - Preliminary No growth in 2 days 07/13/18 09:55 Blood - Peripheral Anaerobic Blood Culture - Preliminary No growth in 2 days 07/13/18 10:05 Blood - Peripheral Aerobic Blood Culture - Preliminary No growth in 2 days 07/13/18 10:05 Blood - Peripheral Anaerobic Blood Culture - Preliminary No growth in 2 days 07/13/18 10:30 Catheterized Urine Urine Culture - Preliminary Escherichia coli ESBL positive gram negative rods <Gloria Herndon - Last Filed: 07/15/18 14:16> Assessment and Plan (1) GI (gastrointestinal bleed) Status: Acute Code(s): K92.2 - Gastrointestinal hemorrhage, unspecified (2) Anemia Status: Acute Code(s): D64.9 - Anemia, unspecified - Plan This patient is a 78-year-old male who presents to the emergency department at [facility] for altered mental status. Patient's medical history includes congestive heart failure, diabetes, high cholesterol, hypertension, left bundle branch block and thyroid disease. Surgical history includes hernia repair. His spouse reports that he was confused and she was unable to assist him with ambulation. Patient denies any complaints. Denies any headache dizziness chest pain shortness of breath or abdominal pain. WBC 21.7 hemoglobin 3.7 hematocrit 11.2 platelet count 283 noted on admission. Upon consultation, patient and spouse report 2-day onset of dark stools. Patient denies any abdominal pain or nausea vomiting. Spouse endorses that patient has been taking aspirin 81 mg by mouth every other day. Of note, patient has also been taking Naprosyn 500 mg p.o. twice daily for the last several months for knee joint pain. Last dose 3 days ago. Patient denies any use of's tobacco or alcohol products. Patient denies any known family history for gastrointestinal disorders. Patient denies any heartburn or difficulty swallowing. Patient is spouse endorse last colonoscopy was done 4 years ago where benign polyps were found. Patient denies ever having had an EGD in the past. Our service has been consulted to evaluate patient for severe anemia/GI bleeding. GI bleed Anemia Patient and spouse endorsed 2-day onset of dark stools. Aspirin 81 mg p.o. every other day as well as Naprosyn 500 mg p.o. twice daily for the last several months taken for knee pain. 07/13/2018 hemoglobin 3.7 hematocrit 11.2 WBC 21.7. 2 units packed RBCs ordered for transfusion. 07/15/2018 GI bleed/anemia 07/14/2018 EGD: 1. The esophagus appeared normal 2. Multiple small erosions were found in the gastric antrum; multiple biopsies was performed 3. Large non-bleeding ulcer was found in the duodenal bulb 4. Retroflexion was performed and was normal Hemoglobin 7.6 hematocrit 21.5 Plan -Cardiac diet -Monitor patient for bleeding -Transfuse as needed -Avoid NSAIDs and anticoagulants -Antiemetics as per attending -Pantoprazole -Supportive care -Further recommendations to follow This patient has been seen by myself and Dr. Herndon and this note is written on his behalf - Attending Attestation Dr. Herndon <Maida Cook - Last Filed: 07/15/18 12:32> (1) GI (gastrointestinal bleed) Status: Acute Code(s): K92.2 - Gastrointestinal hemorrhage, unspecified (2) Anemia Status: Acute Code(s): D64.9 - Anemia, unspecified - Attending Attestation Plan as above, will follow up with you periodically. <Gloria Herndon - Last Filed: 07/15/18 14:16> <Maida Cook - Last Filed: 07/15/18 12:32> (1) GI (gastrointestinal bleed) Qualifiers: GI bleed type/associated pathology: melena Qualified Code(s): K92.1 - Melena (2) Anemia Qualifiers: Anemia type: unspecified type Qualified Code(s): D64.9 - Anemia, unspecified <Gloria Herndon - Last Filed: 11/24/18 14:16> (1) GI (gastrointestinal bleed) Qualifiers: GI bleed type/associated pathology: melena Qualified Code(s): K92.1 - Melena (2) Anemia Qualifiers: Anemia type: unspecified type Qualified Code(s): D64.9 - Anemia, unspecified
[2018-07-15] MEDS ORDERED: Sodium Chlor 0.9% Inj 250 ML IV.SIG SCH (13:00)
--- NOTE | 2018-07-15 14:23 | ECG ---
Date Performed: 07/14/2018 Time Performed: 18:27:42 PTAGE: 78 years EKG: Normal Sinus rhythm vs ectopic atrial rhythm Prolonged corrected QT interval Left bundle branch block Low QRS voltages i n limb leads Abnormal ECG PREVIOUS TRACING : 07/13/2018 09.42 DOCTOR: Edvin Mead Interpretating Date/Time 07/15/2018 14:23:20
--- NOTE | 2018-07-15 19:25 | MB ---
cc: Bill Upton MD DATE: 07/15/2018 REQUESTING PHYSICIAN: Dr. Martin. REASON FOR CONSULTATION: A 78-year-old man with metabolic encephalopathy/GI bleeding/UTI and now with positive ESBL. Please evaluate and advise on therapy. HISTORY OF PRESENT ILLNESS: This is a 78-year-old white male who presented to the emergency department with altered mental status. The patient is currently very confused. He was noted to have GI bleed and has been managed for that by Gastroenterology. He is currently only oriented to person. He had a temperature of 100.8 degrees in the emergency department. On presentation, white count was 21.7. Urinalysis showed 29 white cells and urine culture has ESBL, Escherichia coli and gram-negative bassam. Blood culture is negative at day 2. The patient is afebrile. He is currently on ceftriaxone. The patient has a suprapubic catheter. He just pulled out his IV catheter via which he was getting blood transfusion. White blood cell count has improved and today it is 13.5. PAST MEDICAL HISTORY: Diabetes mellitus, hypertension, hypercholesteremia, congestive heart failure, thyroid disease, suprapubic catheter. ALLERGIES: NO KNOWN DRUG ALLERGIES. MEDICATIONS: 1. Ceftriaxone. 2. Benadryl. 3. Synthroid. 4. Insulin. 5. Lopressor. 6. Pravachol. 7. Protonix. 8. Vancomycin. SOCIAL HISTORY: The patient is . No tobacco use. He is a former smoker. No alcohol. No illicit drugs. FAMILY HISTORY: Noncontributory. REVIEW OF SYSTEMS: Difficult to obtain because the patient is confused. He answers no to questionable pain. PHYSICAL EXAMINATION: GENERAL: This is a frail, elderly male who is in no acute distress. He feels confused. VITAL SIGNS: Temperature 97.4, BP 148/65, respirations 18, heart rate 79. HEENT: Head is atraumatic. Extraocular movements are grossly intact. Pupils reactive to light. No icterus. NECK: No adenopathy or swelling. LUNGS: Decreased breath sounds throughout. HEART: Regular S1 and S2. No audible murmur. ABDOMEN: Bowel sounds present. Flat, soft, nontender. RECTAL: Not performed. EXTREMITIES: No clubbing, cyanosis or edema. SKIN: No rash. NEUROLOGIC: Unable to fully assess. PSYCHIATRIC: Unable to fully assess because the patient is confused. LABORATORY DATA: WBC 15.5, platelets 244, hemoglobin 7.6. Creatinine 0.75, estimated GFR greater than 89, AST 55, ALT 25. Lactic acid on admission was 3.0. IMPRESSION: 1. Sepsis on admission. 2. Escherichia coli, extended-spectrum beta-lactamase positive urine culture. 3. Leukocytosis, improving. 4. Altered mental status secondary to sepsis and urinary tract infection, which appears to be slowly improving, not yet resolved. RECOMMENDATIONS: 1. Discontinue ceftriaxone. 2. Begin ertapenem. 3. Follow the white blood cell count. 4. Monitor response to antibiotic treatment. 5. Repeat the urine culture in a couple of days to check for clearance. Thank you for this consultation. The patient's progress will be monitored and further recommendations will be given and followup, if necessary. Bill Upton MD FFRenetta/ll , 03:32 PM , 03:41 PM [email or web address]
[2018-07-16] MEDS: Sod Chloride 0.9% Inj 1,000 ML IV.CONT SCH ×3 (03:53→18:15)
[2018-07-16 07:06] LABS: Baso % (Auto) 0.3 % (0.0-2.0); Eos # (Auto) 0.1 th/mm3 (0.0-0.4); Eos % (Auto) 0.4 % (0.0-4.0); Hematocrit 27.4 % (39.0-51.0); Hemoglobin 9.5 gm/dL (13.0-17.0); Lymph # (Auto) 0.8 th/mm3 (1.0-4.8); Lymph % (Auto) 5.7 % (9.0-44.0); Mean Corpuscular HGB Conc 34.6 % (32.0-36.0); Mean Corpuscular Hemoglobin 32.8 pg (27.0-34.0); Mean Corpuscular Volume 94.7 fL (80.0-100.0); Mean Platelet Volume 8.5 fL (7.0-11.0); Mono # (Auto) 1.5 th/mm3 (0.0-0.9); Mono % (Auto) 10.5 % (0.0-8.0); Neut # (Auto) 12.1 th/mm3 (1.8-7.7); Neut % (Auto) 83.1 % (16.0-70.0); Platelet Count 265 th/mm3 (150-450); Red Cell Distribution Width 15.9 % (11.6-17.2); White Blood Count 14.5 th/mm3 (4.0-11.0)
[2018-07-16 07:40] LABS: Alanine Aminotransferase 28 U/L (12-78); Albumin 2.8 g/dL (3.4-5.0); Anion Gap 10 meq/L (5-15); Aspartate Aminotransferase 49 U/L (15-37); Blood Urea Nitrogen 15 mg/dL (7-18); Calcium 7.7 mg/dL (8.5-10.1); Carbon Dioxide 22.9 meq/L (21.0-32.0); Chloride 108 meq/L (98-107); Glomerular Filtration Rate Greater Than 89 mL/min (>89); Glucose,Random 119 mg/dL (74-106); Potassium 3.7 meq/L (3.5-5.1); Sodium 141 meq/L (136-145)
[2018-07-16 07:42] LABS: Alkaline Phosphatase 52 U/L (45-117)
[2018-07-16] MEDS: Insulin NovoLOG Aspart Correctional Sugar Inj SQ SCH ×4 (08:19→20:29)
[2018-07-16] MEDS: Metoprolol Tartrate 50 MG Tablet PO SCH ×2 (13:27→20:29)
[2018-07-16] MEDS: Levothyroxine 125 MCG Tablet PO SCH (13:27)
--- NOTE | 2018-07-16 14:08 | P.PNGI ---
Subjective Interval history: Patient resting comfortably with eyes closed. Spouse at bedside, EGD results reviewed No reported bleeding <CookMaida - Last Filed: 07/16/18 14:05> Physical Exam Vital signs: Vital Signs 07/15/18 14:16 07/15/18 15:00 07/15/18 16:00 Temperature 97.4 F L 98.0 F Pulse Rate 79 80 72 Respiratory Rate 18 18 Blood Pressure 148/65 H 142/75 H Pulse Oximetry 100 100 07/15/18 17:00 07/15/18 18:00 07/15/18 19:00 Temperature Pulse Rate 94 H 94 H 94 H Respiratory Rate Blood Pressure Pulse Oximetry 07/15/18 20:00 07/15/18 21:00 07/15/18 22:00 Temperature 98.7 F Pulse Rate 91 H 87 80 Respiratory Rate 22 Blood Pressure 139/78 Pulse Oximetry 99 07/15/18 23:00 07/16/18 00:00 07/16/18 00:50 Temperature 97.9 F 98.6 F Pulse Rate 85 84 61 Respiratory Rate 18 20 Blood Pressure 135/75 152/65 H Pulse Oximetry 100 99 07/16/18 04:00 07/16/18 08:00 07/16/18 12:00 Temperature 98 F 98.2 F 98.1 F Pulse Rate 60 64 78 Respiratory Rate 20 18 18 Blood Pressure 141/65 H 121/56 L 139/64 Pulse Oximetry 96 99 99 Intake & Output 07/15/18 07/16/18 07/16/18 18:59 06:59 18:59 Intake Total 780 / 780 360 / 360 Output Total 950 / 950 900 / 900 Balance -170 / -170 -540 / -540 Weight 63.3 kg Intake: IV 300 / 300 360 / 360 Protonix Inj 80 MG In NS Inj 100 / 100 100 ML @ 10 mls/hr IV.CONT Q10H [facility] Rx#:[id number] NS Inj 1,000 ML @ 125 mls/hr IV 260 / 260 .CONT .Q8H [facility] Rx#:[id number] INVanz Inj 1,000 MG In NS Inj 100 / 100 100 ML @ 200 mls/hr IV.SIG Q24H [facility] Rx#:[id number] Rocephin Inj 1,000 MG In NS Inj 100 / 100 100 ML @ 200 mls/hr IV.SIG Q24H [facility] Rx#:[id number] Oral 480 / 480 Intake (Blood Product) Amt 0 / 0 Rbc As-3 Leukoreduced Unit 0 / 0 [id number] Output: Urine Amount (Catheter) 950 / 950 900 / 900 Suprapubic 950 / 950 900 / 900 Other: Date of Last Bowel Movement 07/15/18 07/16/18 07/16/18 # Incontinent Bowel Movements 1 1 - Constitutional chronically ill appearing - Routine HEENT Exam Head: Present: normocephalic - Routine Respiratory Exam Present: CTA bilaterally. Absent: accessory muscle use - Routine Cardiovascular Exam Present: RRR - Routine Abdominal Exam Present: soft, normoactive bowel sounds. Absent: tenderness, distended, guarding, firm - Routine Skin Exam Present: dry, warm - Urinary Catheter Management Suprapubic Cath placed during this visit: no Reason for continuing: Hourly intake/output <Maida Cook - Last Filed: 07/16/18 14:05> Vital signs: Vital Signs 07/16/18 16:00 07/16/18 20:00 07/17/18 00:00 Temperature 97.9 F 98 F 98.3 F Pulse Rate 70 62 62 Respiratory Rate 18 18 18 Blood Pressure 145/64 H 130/79 146/66 H Pulse Oximetry 98 100 94 L 07/17/18 00:28 07/17/18 04:00 07/17/18 08:00 Temperature 97.9 F 97.9 F Pulse Rate 56 L 73 Respiratory Rate 16 16 18 Blood Pressure 142/65 H 157/67 H Pulse Oximetry 98 99 07/17/18 12:00 Temperature Pulse Rate Respiratory Rate 18 Blood Pressure Pulse Oximetry Intake & Output 07/16/18 07/17/18 07/17/18 18:59 06:59 18:59 Intake Total 840 / 840 900 / 900 350 / 350 Output Total 550 / 550 600 / 600 Balance 290 / 290 300 / 300 350 / 350 Weight 62 kg Intake: IV 840 / 840 900 / 900 350 / 350 NS Inj 1,000 ML @ 125 mls/hr IV 740 / 740 650 / 650 350 / 350 .CONT .Q8H [facility] Rx#:[id number] INVanz Inj 1,000 MG In NS Inj 100 / 100 100 ML @ 200 mls/hr IV.SIG Q24H [facility] Rx#:[id number] Output: Urine 600 / 600 Urine Amount (Catheter) 550 / 550 Suprapubic 550 / 550 Other: Date of Last Bowel Movement 07/16/18 07/16/18 07/16/18 # Bowel Movements 2 # Incontinent Bowel Movements 2 - Urinary Catheter Management Suprapubic Cath placed during this visit: no <Richie Herndonmicheline A - Last Filed: 07/17/18 12:53> Results - Labs CBC & Chem 7: 07/16/18 06:33 07/16/18 06:33 Laboratory Results - last 24 hr 07/13/18 07/14/18 07/15/18 10:20 00:21 12:23 WBC RBC Hgb Hct MCV MCH MCHC RDW Plt Count MPV Neut % (Auto) Lymph % (Auto) [place] % (Auto) Eos % (Auto) Baso % (Auto) Neut # (Auto) Lymph # (Auto) [place] # (Auto) Eos # (Auto) Baso # (Auto) WBC Differential Differential Comment Sodium Potassium Chloride Carbon Dioxide Anion Gap BUN Creatinine Estimated GFR POC Glucose Random Glucose Calcium Total Bilirubin AST ALT Alkaline Phosphatase Total Protein Albumin MTS Gel Crossmatch See Detail See Detail See Detail 07/15/18 07/15/18 07/16/18 17:34 20:42 06:33 WBC 14.5 H RBC 2.90 L Hgb 9.5 L Hct 27.4 L MCV 94.7 MCH 32.8 MCHC 34.6 RDW 15.9 Plt Count 265 MPV 8.5 Neut % (Auto) 83.1 H Lymph % (Auto) 5.7 L [place] % (Auto) 10.5 H Eos % (Auto) 0.4 Baso % (Auto) 0.3 Neut # (Auto) 12.1 H Lymph # (Auto) 0.8 L [place] # (Auto) 1.5 H Eos # (Auto) 0.1 Baso # (Auto) 0.0 WBC Differential . Differential Comment Auto diff final Sodium Potassium Chloride Carbon Dioxide Anion Gap BUN Creatinine Estimated GFR POC Glucose 143 H 143 H Random Glucose Calcium Total Bilirubin AST ALT Alkaline Phosphatase Total Protein Albumin MTS Gel Crossmatch 07/16/18 07/16/18 07/16/18 06:33 08:18 12:51 WBC RBC Hgb Hct MCV MCH MCHC RDW Plt Count MPV Neut % (Auto) Lymph % (Auto) [place] % (Auto) Eos % (Auto) Baso % (Auto) Neut # (Auto) Lymph # (Auto) [place] # (Auto) Eos # (Auto) Baso # (Auto) WBC Differential Differential Comment Sodium 141 Potassium 3.7 Chloride 108 H Carbon Dioxide 22.9 Anion Gap 10 BUN 15 Creatinine 0.68 Estimated GFR Greater than 89 POC Glucose 118 H 152 H Random Glucose 119 H Calcium 7.7 L Total Bilirubin 1.0 AST 49 H ALT 28 Alkaline Phosphatase 52 Total Protein 6.0 L D Albumin 2.8 L MTS Gel Crossmatch Microbiology 07/13/18 09:55 Blood - Peripheral Aerobic Blood Culture - Preliminary No growth in 3 days 07/13/18 09:55 Blood - Peripheral Anaerobic Blood Culture - Preliminary No growth in 3 days 07/13/18 10:05 Blood - Peripheral Aerobic Blood Culture - Preliminary No growth in 3 days 07/13/18 10:05 Blood - Peripheral Anaerobic Blood Culture - Preliminary No growth in 3 days 07/13/18 10:30 Catheterized Urine Urine Culture - Final Escherichia coli ESBL positive Pseudomonas aeruginosa <Maida Cook - Last Filed: 07/16/18 14:05> - Labs CBC & Chem 7: 07/17/18 09:56 07/16/18 06:33 Laboratory Results - last 24 hr 07/16/18 07/16/18 07/16/18 12:51 17:48 20:28 WBC RBC Hgb Hct MCV MCH MCHC RDW Plt Count MPV POC Glucose 152 H 184 H 156 H 07/17/18 07/17/18 07/17/18 08:30 09:56 12:39 WBC 10.5 RBC 2.78 L Hgb 8.9 L Hct 26.3 L MCV 94.7 MCH 32.2 MCHC 34.0 RDW 15.9 Plt Count 273 MPV 8.0 POC Glucose 94 137 H Microbiology 07/13/18 09:55 Blood - Peripheral Aerobic Blood Culture - Preliminary No growth in 4 days 07/13/18 09:55 Blood - Peripheral Anaerobic Blood Culture - Preliminary No growth in 4 days 07/13/18 10:05 Blood - Peripheral Aerobic Blood Culture - Preliminary No growth in 4 days 07/13/18 10:05 Blood - Peripheral Anaerobic Blood Culture - Preliminary No growth in 4 days 07/13/18 10:30 Catheterized Urine Urine Culture - Final Escherichia coli ESBL positive Pseudomonas aeruginosa <Gloria Herndon - Last Filed: 07/17/18 12:53> Assessment and Plan (1) GI (gastrointestinal bleed) Status: Acute Code(s): K92.2 - Gastrointestinal hemorrhage, unspecified (2) Anemia Status: Acute Code(s): D64.9 - Anemia, unspecified - Plan This patient is a 78-year-old male who presents to the emergency department at [facility] for altered mental status. Patient's medical history includes congestive heart failure, diabetes, high cholesterol, hypertension, left bundle branch block and thyroid disease. Surgical history includes hernia repair. His spouse reports that he was confused and she was unable to assist him with ambulation. Patient denies any complaints. Denies any headache dizziness chest pain shortness of breath or abdominal pain. WBC 21.7 hemoglobin 3.7 hematocrit 11.2 platelet count 283 noted on admission. Upon consultation, patient and spouse report 2-day onset of dark stools. Patient denies any abdominal pain or nausea vomiting. Spouse endorses that patient has been taking aspirin 81 mg by mouth every other day. Of note, patient has also been taking Naprosyn 500 mg p.o. twice daily for the last several months for knee joint pain. Last dose 3 days ago. Patient denies any use of's tobacco or alcohol products. Patient denies any known family history for gastrointestinal disorders. Patient denies any heartburn or difficulty swallowing. Patient is spouse endorse last colonoscopy was done 4 years ago where benign polyps were found. Patient denies ever having had an EGD in the past. Our service has been consulted to evaluate patient for severe anemia/GI bleeding. GI bleed Anemia Patient and spouse endorsed 2-day onset of dark stools. Aspirin 81 mg p.o. every other day as well as Naprosyn 500 mg p.o. twice daily for the last several months taken for knee pain. 07/13/2018 hemoglobin 3.7 hematocrit 11.2 WBC 21.7. 2 units packed RBCs ordered for transfusion. 07/15/2018 GI bleed/anemia 07/14/2018 EGD: 1. The esophagus appeared normal 2. Multiple small erosions were found in the gastric antrum; multiple biopsies was performed 3. Large non-bleeding ulcer was found in the duodenal bulb 4. Retroflexion was performed and was normal Hemoglobin 7.6 hematocrit 21.5 07/16/2018 GI bleed with anemia Patient resting soundly No reported bleeding 07/16/2018 WBC 14.5 hemoglobin 9.5 hematocrit 27.4 platelet count 265 Total bilirubin 1.0 AST 49 ALT 28 alk phos 52 Plan -Cardiac diet -Monitor patient for bleeding -Transfuse as needed -Avoid NSAIDs and anticoagulants -Antiemetics as per attending -Pantoprazole -Supportive care -GI will sign off at this time, please notify if needed This patient has been seen by myself and Dr. Herndon and this note is written on his behalf - Attending Attestation Dr. Herndon <Maida Cook - Last Filed: 07/16/18 14:05> (1) GI (gastrointestinal bleed) Status: Acute Code(s): K92.2 - Gastrointestinal hemorrhage, unspecified (2) Anemia Status: Acute Code(s): D64.9 - Anemia, unspecified - Attending Attestation As above. Nothing active from GI point of view, please notify us if needed again. <Gloria Herndon - Last Filed: 07/17/18 12:53> <Maida Cook - Last Filed: 07/16/18 14:05> (1) GI (gastrointestinal bleed) Qualifiers: GI bleed type/associated pathology: melena Qualified Code(s): K92.1 - Melena (2) Anemia Qualifiers: Anemia type: unspecified type Qualified Code(s): D64.9 - Anemia, unspecified <Gloria Herndon - Last Filed: 07/17/18 12:53> (1) GI (gastrointestinal bleed) Qualifiers: GI bleed type/associated pathology: melena Qualified Code(s): K92.1 - Melena (2) Anemia Qualifiers: Anemia type: unspecified type Qualified Code(s): D64.9 - Anemia, unspecified
--- NOTE | 2018-07-16 14:58 | P.PN ---
Subjective Interval history: Nursing denies any acute changes overnight. Patient himself denies any complaints, denies any abdominal pain. Reports tolerating p.o. intake. is at the bedside says that the patient at baseline is pretty much at home with her most of the day, she would usually leave him home alone periodically just to get errands done. Says he does not drive. Says he was taking Aleve for right knee pain. Physical Exam Vital signs: Vital Signs 07/15/18 15:00 07/15/18 16:00 07/15/18 17:00 Temperature 98.0 F Pulse Rate 80 72 94 H Respiratory Rate 18 Blood Pressure 142/75 H Pulse Oximetry 100 07/15/18 18:00 07/15/18 19:00 07/15/18 20:00 Temperature 98.7 F Pulse Rate 94 H 94 H 91 H Respiratory Rate 22 Blood Pressure 139/78 Pulse Oximetry 99 07/15/18 21:00 07/15/18 22:00 07/15/18 23:00 Temperature Pulse Rate 87 80 85 Respiratory Rate Blood Pressure Pulse Oximetry 07/16/18 00:00 07/16/18 00:50 07/16/18 04:00 Temperature 97.9 F 98.6 F 98 F Pulse Rate 84 61 60 Respiratory Rate 18 20 20 Blood Pressure 135/75 152/65 H 141/65 H Pulse Oximetry 100 99 96 07/16/18 08:00 07/16/18 12:00 Temperature 98.2 F 98.1 F Pulse Rate 64 78 Respiratory Rate 18 18 Blood Pressure 121/56 L 139/64 Pulse Oximetry 99 99 Intake & Output 07/15/18 07/16/18 07/16/18 18:59 06:59 18:59 Intake Total 780 / 780 360 / 360 Output Total 950 / 950 900 / 900 Balance -170 / -170 -540 / -540 Weight 63.3 kg Intake: IV 300 / 300 360 / 360 Protonix Inj 80 MG In NS Inj 100 / 100 100 ML @ 10 mls/hr IV.CONT Q10H [facility] Rx#:[id number] NS Inj 1,000 ML @ 125 mls/hr IV 260 / 260 .CONT .Q8H [facility] Rx#:[id number] INVanz Inj 1,000 MG In NS Inj 100 / 100 100 ML @ 200 mls/hr IV.SIG Q24H [facility] Rx#:[id number] Rocephin Inj 1,000 MG In NS Inj 100 / 100 100 ML @ 200 mls/hr IV.SIG Q24H [facility] Rx#:[id number] Oral 480 / 480 Intake (Blood Product) Amt 0 / 0 Rbc As-3 Leukoreduced Unit 0 / 0 [id number] Output: Urine Amount (Catheter) 950 / 950 900 / 900 Suprapubic 950 / 950 900 / 900 Other: Date of Last Bowel Movement 07/15/18 07/16/18 07/16/18 # Incontinent Bowel Movements 1 1 - Urinary Catheter Management Suprapubic Cath placed during this visit: no Reason for continuing: Hourly intake/output Results - Labs CBC & Chem 7: 07/16/18 06:33 07/16/18 06:33 Laboratory Results - last 24 hr 07/15/18 07/15/18 07/15/18 12:23 17:34 20:42 WBC RBC Hgb Hct MCV MCH MCHC RDW Plt Count MPV Neut % (Auto) Lymph % (Auto) [place] % (Auto) Eos % (Auto) Baso % (Auto) Neut # (Auto) Lymph # (Auto) [place] # (Auto) Eos # (Auto) Baso # (Auto) WBC Differential Differential Comment Sodium Potassium Chloride Carbon Dioxide Anion Gap BUN Creatinine Estimated GFR POC Glucose 143 H 143 H Random Glucose Calcium Total Bilirubin AST ALT Alkaline Phosphatase Total Protein Albumin MTS Gel Crossmatch See Detail 07/16/18 07/16/18 07/16/18 06:33 06:33 08:18 WBC 14.5 H RBC 2.90 L Hgb 9.5 L Hct 27.4 L MCV 94.7 MCH 32.8 MCHC 34.6 RDW 15.9 Plt Count 265 MPV 8.5 Neut % (Auto) 83.1 H Lymph % (Auto) 5.7 L [place] % (Auto) 10.5 H Eos % (Auto) 0.4 Baso % (Auto) 0.3 Neut # (Auto) 12.1 H Lymph # (Auto) 0.8 L [place] # (Auto) 1.5 H Eos # (Auto) 0.1 Baso # (Auto) 0.0 WBC Differential . Differential Comment Auto diff final Sodium 141 Potassium 3.7 Chloride 108 H Carbon Dioxide 22.9 Anion Gap 10 BUN 15 Creatinine 0.68 Estimated GFR Greater than 89 POC Glucose 118 H Random Glucose 119 H Calcium 7.7 L Total Bilirubin 1.0 AST 49 H ALT 28 Alkaline Phosphatase 52 Total Protein 6.0 L D Albumin 2.8 L MTS Gel Crossmatch 07/16/18 12:51 WBC RBC Hgb Hct MCV MCH MCHC RDW Plt Count MPV Neut % (Auto) Lymph % (Auto) [place] % (Auto) Eos % (Auto) Baso % (Auto) Neut # (Auto) Lymph # (Auto) [place] # (Auto) Eos # (Auto) Baso # (Auto) WBC Differential Differential Comment Sodium Potassium Chloride Carbon Dioxide Anion Gap BUN Creatinine Estimated GFR POC Glucose 152 H Random Glucose Calcium Total Bilirubin AST ALT Alkaline Phosphatase Total Protein Albumin MTS Gel Crossmatch Microbiology 07/13/18 09:55 Blood - Peripheral Aerobic Blood Culture - Preliminary No growth in 3 days 07/13/18 09:55 Blood - Peripheral Anaerobic Blood Culture - Preliminary No growth in 3 days 07/13/18 10:05 Blood - Peripheral Aerobic Blood Culture - Preliminary No growth in 3 days 07/13/18 10:05 Blood - Peripheral Anaerobic Blood Culture - Preliminary No growth in 3 days 07/13/18 10:30 Catheterized Urine Urine Culture - Final Escherichia coli ESBL positive Pseudomonas aeruginosa Assessment and Plan - Plan 78-year-old man with admitted with melena and acute symptomatic anemia Acute symptomatic anemia due to GI blood loss -Appreciate input from gastroenterology and s/p EGD 07/14/18 pending biopsy report. No active source of bleeding seen on EGD, large ulcer nonbleeding in the duodenal bulb -Continue Protonix, avoid NSAIDs, h/h holding steady ESBL Urinary tract infection Metabolic encephalopathy - improved History of suprapubic catheter Ertapenem per infectious disease, considering repeat culture per infectious disease to ensure clearance -Patient has an appointment with Urology next week 07/18/18 for suprapubic exchange but will seek ID input on the urgency of this given ESBL Hypothyroidism Hyperlipidemia Diabetes mellitus Continue levothyroxine Sliding scale insulin. SCDs
[2018-07-17] MEDS: Sod Chloride 0.9% Inj 1,000 ML IV.CONT SCH ×3 (01:08→20:16)
[2018-07-17] MEDS: Insulin NovoLOG Aspart Correctional Sugar Inj SQ SCH ×4 (08:49→22:38)
[2018-07-17] MEDS: Metoprolol Tartrate 50 MG Tablet PO SCH ×2 (10:06→22:34)
[2018-07-17] MEDS: Levothyroxine 125 MCG Tablet PO SCH (10:06)
[2018-07-17 10:19] LABS: Hematocrit 26.3 % (39.0-51.0); Hemoglobin 8.9 gm/dL (13.0-17.0); Mean Corpuscular Hemoglobin 32.2 pg (27.0-34.0); Mean Corpuscular Volume 94.7 fL (80.0-100.0); Platelet Count 273 th/mm3 (150-450); Red Blood Count 2.78 mil/mm3 (4.50-5.90); Red Cell Distribution Width 15.9 % (11.6-17.2); White Blood Count 10.5 th/mm3 (4.0-11.0)
--- NOTE | 2018-07-17 12:57 | P.PN ---
Subjective Interval history: Nursing denies any acute changes except for some continuous black tarry stool overnight. No bright red blood per rectum. Patient himself denies noticing any of these things. No vomiting. Tolerating p.o. intake well. Doing well without restraints this morning. Physical Exam Vital signs: Vital Signs 07/16/18 16:00 07/16/18 20:00 07/17/18 00:00 Temperature 97.9 F 98 F 98.3 F Pulse Rate 70 62 62 Respiratory Rate 18 18 18 Blood Pressure 145/64 H 130/79 146/66 H Pulse Oximetry 98 100 94 L 07/17/18 00:28 07/17/18 04:00 07/17/18 08:00 Temperature 97.9 F 97.9 F Pulse Rate 56 L 73 Respiratory Rate 16 16 18 Blood Pressure 142/65 H 157/67 H Pulse Oximetry 98 99 07/17/18 12:00 Temperature Pulse Rate Respiratory Rate 18 Blood Pressure Pulse Oximetry Intake & Output 07/16/18 07/17/18 07/17/18 18:59 06:59 18:59 Intake Total 840 / 840 900 / 900 350 / 350 Output Total 550 / 550 600 / 600 Balance 290 / 290 300 / 300 350 / 350 Weight 62 kg Intake: IV 840 / 840 900 / 900 350 / 350 NS Inj 1,000 ML @ 125 mls/hr IV 740 / 740 650 / 650 350 / 350 .CONT .Q8H [facility] Rx#:[id number] INVanz Inj 1,000 MG In NS Inj 100 / 100 100 ML @ 200 mls/hr IV.SIG Q24H [facility] Rx#:[id number] Output: Urine 600 / 600 Urine Amount (Catheter) 550 / 550 Suprapubic 550 / 550 Other: Date of Last Bowel Movement 07/16/18 07/16/18 07/16/18 # Bowel Movements 2 # Incontinent Bowel Movements 2 Narrative: Abdomen soft, nontender, nondistended Superpubic catheter in place, insertion site appears clean dry and intact Clear lungs bilaterally, labored breathing Heart sounds regular rate and rhythm, no murmurs Good color, awake, alert - Urinary Catheter Management Suprapubic Cath placed during this visit: no Reason for continuing: Hourly intake/output Results - Labs CBC & Chem 7: 07/17/18 09:56 07/16/18 06:33 Laboratory Results - last 24 hr 07/16/18 07/16/18 07/17/18 17:48 20:28 08:30 WBC RBC Hgb Hct MCV MCH MCHC RDW Plt Count MPV POC Glucose 184 H 156 H 94 07/17/18 07/17/18 09:56 12:39 WBC 10.5 RBC 2.78 L Hgb 8.9 L Hct 26.3 L MCV 94.7 MCH 32.2 MCHC 34.0 RDW 15.9 Plt Count 273 MPV 8.0 POC Glucose 137 H Microbiology 07/13/18 09:55 Blood - Peripheral Aerobic Blood Culture - Preliminary No growth in 4 days 07/13/18 09:55 Blood - Peripheral Anaerobic Blood Culture - Preliminary No growth in 4 days 07/13/18 10:05 Blood - Peripheral Aerobic Blood Culture - Preliminary No growth in 4 days 07/13/18 10:05 Blood - Peripheral Anaerobic Blood Culture - Preliminary No growth in 4 days 07/13/18 10:30 Catheterized Urine Urine Culture - Final Escherichia coli ESBL positive Pseudomonas aeruginosa Assessment and Plan - Plan 78-year-old man with admitted with melena and acute symptomatic anemia Acute symptomatic anemia due to GI blood loss -Appreciate input from gastroenterology and s/p EGD 07/14/18 pending biopsy report. No active source of bleeding seen on EGD, large ulcer nonbleeding in the duodenal bulb -Continue Protonix, avoid NSAIDs, h/h holding steady Cleared for discharge from GI standpoint ESBL + Pseudomonas UTI Metabolic encephalopathy - improved History of suprapubic catheter Discussed with infectious disease, will repeat culture today (no need for urine analysis close) if culture results are negative can be discharged without further antibiotics -Invanz for ESBL, Levaquin for Pseudomonas per ID -Suprapubic catheter exchange to be done upon discharge Hypothyroidism Hyperlipidemia Diabetes mellitus Continue levothyroxine Sliding scale insulin. SCDs Discharge Planning: Awaiting repeat urine culture results and ultimate rehab disposition
--- NOTE | 2018-07-17 14:32 | P.PNID ---
Subjective Remarks: Patient is currently in the bedside chair. He appears a lot more alert. He is communicating appropriately. He denies chills. No fever. Urine culture has ESBL E. coli and pseudomonas aeruginosa. PAST MEDICAL HISTORY: Diabetes mellitus, hypertension, hypercholesteremia, congestive heart failure, thyroid disease, suprapubic catheter. Allergies/Adverse Reactions: Allergies No Known Allergies Allergy (Verified 07/13/18 11:06) Objective Vital Signs 07/16/18 16:00 07/16/18 20:00 07/17/18 00:00 Temperature 97.9 F 98 F 98.3 F Pulse Rate 70 62 62 Respiratory Rate 18 18 18 Blood Pressure 145/64 H 130/79 146/66 H Pulse Oximetry 98 100 94 L 07/17/18 00:28 07/17/18 04:00 07/17/18 08:00 Temperature 97.9 F 97.9 F Pulse Rate 56 L 73 Respiratory Rate 16 16 18 Blood Pressure 142/65 H 157/67 H Pulse Oximetry 98 99 07/17/18 12:00 Temperature 97.7 F Pulse Rate 80 Respiratory Rate 17 Blood Pressure 112/56 L Pulse Oximetry 99 Intake & Output 07/16/18 07/17/18 07/17/18 18:59 06:59 18:59 Intake Total 840 / 840 900 / 900 350 / 350 Output Total 550 / 550 600 / 600 Balance 290 / 290 300 / 300 350 / 350 Weight 62 kg Intake: IV 840 / 840 900 / 900 350 / 350 NS Inj 1,000 ML @ 125 mls/hr IV 740 / 740 650 / 650 350 / 350 .CONT .Q8H [facility] Rx#:[id number] INVanz Inj 1,000 MG In NS Inj 100 / 100 100 ML @ 200 mls/hr IV.SIG Q24H [facility] Rx#:[id number] Output: Urine 600 / 600 Urine Amount (Catheter) 550 / 550 Suprapubic 550 / 550 Other: Date of Last Bowel Movement 07/16/18 07/16/18 07/16/18 # Bowel Movements 2 # Incontinent Bowel Movements 2 07/13/18 09:55 Blood - Peripheral Aerobic Blood Culture - Preliminary No growth in 4 days 07/13/18 09:55 Blood - Peripheral Anaerobic Blood Culture - Preliminary No growth in 4 days 07/13/18 10:05 Blood - Peripheral Aerobic Blood Culture - Preliminary No growth in 4 days 07/13/18 10:05 Blood - Peripheral Anaerobic Blood Culture - Preliminary No growth in 4 days 07/13/18 10:30 Catheterized Urine Urine Culture - Final Escherichia coli ESBL positive Pseudomonas aeruginosa Lab - Hematology Results 07/16/18 07/17/18 06:33 09:56 WBC 14.5 H 10.5 RBC 2.90 L 2.78 L Hgb 9.5 L 8.9 L Hct 27.4 L 26.3 L MCV 94.7 94.7 MCH 32.8 32.2 MCHC 34.6 34.0 RDW 15.9 15.9 Plt Count 265 273 MPV 8.5 8.0 Neut % (Auto) 83.1 H Lymph % (Auto) 5.7 L [place] % (Auto) 10.5 H Eos % (Auto) 0.4 Baso % (Auto) 0.3 Neut # (Auto) 12.1 H Lymph # (Auto) 0.8 L [place] # (Auto) 1.5 H Eos # (Auto) 0.1 Baso # (Auto) 0.0 WBC Differential . Differential Comment Auto diff final Lab - Chemistry Results 07/15/18 07/15/18 07/16/18 17:34 20:42 06:33 Sodium 141 Potassium 3.7 Chloride 108 H Carbon Dioxide 22.9 Anion Gap 10 BUN 15 Creatinine 0.68 Estimated GFR Greater than 89 POC Glucose 143 H 143 H Random Glucose 119 H Calcium 7.7 L Total Bilirubin 1.0 AST 49 H ALT 28 Alkaline Phosphatase 52 Total Protein 6.0 L D Albumin 2.8 L 07/16/18 07/16/18 07/16/18 08:18 12:51 17:48 Sodium Potassium Chloride Carbon Dioxide Anion Gap BUN Creatinine Estimated GFR POC Glucose 118 H 152 H 184 H Random Glucose Calcium Total Bilirubin AST ALT Alkaline Phosphatase Total Protein Albumin 07/16/18 07/17/18 07/17/18 20:28 08:30 12:39 Sodium Potassium Chloride Carbon Dioxide Anion Gap BUN Creatinine Estimated GFR POC Glucose 156 H 94 137 H Random Glucose Calcium Total Bilirubin AST ALT Alkaline Phosphatase Total Protein Albumin Imaging: ITS Impressions Head CT 07/13/18 09:37 CONCLUSION: 1. No acute intracranial abnormalities seen. 2. Widespread decreased density in the cerebral white matter likely from underlying small vessel ischemic demyelination. . Physical Exam: PHYSICAL EXAMINATION: GENERAL: No acute distress. HEENT: Head is atraumatic. Extraocular movements are grossly intact. Pupils reactive to light. No icterus. NECK: No adenopathy or swelling. LUNGS: Decreased breath sounds. HEART: Regular S1 and S2. No audible murmur. ABDOMEN: Bowel sounds present. Flat, soft, nontender. EXTREMITIES: No clubbing, cyanosis or edema. SKIN: No rash. NEUROLOGIC: Nonfocal. PSYCHIATRIC: Calm and cooperative. Assessment and Plan - Plan IMPRESSION: 1. Sepsis on admission. 2. Escherichia coli, extended-spectrum beta-lactamase positive urine culture. Patient has suprapubic catheter. 3. Leukocytosis, improving. 4. Altered mental status secondary to sepsis and urinary tract infection. Markedly improved. RECOMMENDATIONS: 1. Continue ertapenem for ESBL E. coli.. 2. Give Levaquin p.o. for Pseudomonas. 3. Stop vancomycin 4. Repeat the urine culture. Await the urine culture result to determine whether he needs continued IV antibiotic. If the urine culture is resolved, we can stop antibiotics. However I suspect he will need a course of antibiotics. If the ESBL E. coli is cleared, we can give Levaquin on discharge. Discussed with RN.
[2018-07-17] MEDS: levoFLOXacin 750 MG Tablet PO SCH (15:00)
[2018-07-18] MEDS: Sod Chloride 0.9% Inj 1,000 ML IV.CONT SCH ×2 (06:45→14:02)
[2018-07-18] MEDS: Levothyroxine 125 MCG Tablet PO SCH (09:42)
[2018-07-18] MEDS: Metoprolol Tartrate 50 MG Tablet PO SCH ×2 (09:42→23:07)
[2018-07-18] MEDS: Insulin NovoLOG Aspart Correctional Sugar Inj SQ SCH ×4 (13:58→23:11)
[2018-07-18] MEDS: levoFLOXacin 750 MG Tablet PO SCH (17:15)
--- NOTE | 2018-07-18 17:19 | P.PNIM ---
Subjective Interval history: Patient reports he is feelign ok today. DW his at bedside. He had one episode of dark stool this morning. Physical Exam Vital signs: Vital Signs 07/17/18 20:00 07/18/18 00:00 07/18/18 04:00 Temperature 97.6 F 97.9 F 98.2 F Pulse Rate 78 57 L 61 Respiratory Rate 18 18 18 Blood Pressure 131/63 139/63 136/64 Pulse Oximetry 97 99 99 07/18/18 08:00 07/18/18 12:00 Temperature 98.0 F 97.7 F Pulse Rate 68 62 Respiratory Rate 18 13 Blood Pressure 145/68 H 114/59 L Pulse Oximetry 90 L 99 Intake & Output 07/17/18 07/18/18 07/18/18 18:59 06:59 18:59 Intake Total 1450 / 1450 1000 / 1000 Output Total 450 / 450 400 / 400 Balance 1000 / 1000 600 / 600 Weight 62.7 kg Intake: IV 1450 / 1450 1000 / 1000 NS Inj 1,000 ML @ 125 mls/hr IV 1350 / 1350 1000 / 1000 .CONT .Q8H [facility] Rx#:[id number] INVanz Inj 1,000 MG In NS Inj 100 / 100 100 ML @ 200 mls/hr IV.SIG Q24H [facility] Rx#:[id number] Output: Urine 400 / 400 Urine Amount (Catheter) 450 / 450 Suprapubic 450 / 450 Other: Date of Last Bowel Movement 07/16/18 07/17/18 # Bowel Movements 1 Narrative: No acute distress Abdomen soft, nontender, nondistended Suprapubic catheter in place, insertion site appears clean dry and intact Clear lungs bilaterally, labored breathing Heart sounds regular rate and rhythm, no murmurs Good color, awake, alert - Urinary Catheter Management Suprapubic Cath placed during this visit: no Reason for continuing: Hourly intake/output Results - Labs CBC & Chem 7: 07/17/18 09:56 07/16/18 06:33 Laboratory Results - last 24 hr 07/13/18 07/17/18 07/18/18 23:49 20:38 08:54 POC Glucose 206 H 122 H RBC Folate 458 07/18/18 12:07 POC Glucose 124 H RBC Folate Microbiology 07/17/18 15:00 Catheterized Urine Urine Culture - Preliminary Immature growth - reincubate 07/13/18 09:55 Blood - Peripheral Aerobic Blood Culture - Final No growth in 5 days 07/13/18 09:55 Blood - Peripheral Anaerobic Blood Culture - Final No growth in 5 days 07/13/18 10:05 Blood - Peripheral Aerobic Blood Culture - Final No growth in 5 days 07/13/18 10:05 Blood - Peripheral Anaerobic Blood Culture - Final No growth in 5 days Assessment and Plan - Plan 78-year-old man admitted with acute symptomatic anemia secondary to GI bleed. Sepsis on admission secondary to complicated UTI related to suprapubic cath. Acute symptomatic anemia due to acute GI blood loss -Appreciate input from gastroenterology and s/p EGD 07/14/18 pending biopsy report. No active source of bleeding seen on EGD, large nonbleeding ulcer in the duodenal bulb -Continue Protonix, avoid NSAIDs, h/h holding steady Cleared for discharge from GI standpoint - Continue to follow bowel movements - Follow up H&H in AM. Sepsis secondary to complicated UTI related to suprapubic catheter. Present on admission: ESBL + Pseudomonas UTI Metabolic encephalopathy - improved History of suprapubic catheter Appreciate input from ID. Repeat urine culture is pending -Invanz for ESBL, Levaquin for Pseudomonas per ID Await the urine culture result to determine whether he needs continued IV antibiotic. If the urine culture is negative, we can stop antibiotics. However will likely need a course of antibiotics. If the ESBL E. coli is cleared, we can give Levaquin on discharge for pseudomonas. -Suprapubic catheter exchange to be done upon discharge Hypothyroidism Hyperlipidemia Diabetes mellitus Continue levothyroxine Sliding scale insulin. SCDs Discharge Planning: Awaiting repeat urine culture results and ultimate rehab disposition
[2018-07-19 07:53] LABS: Hematocrit 23.8 % (39.0-51.0); Hemoglobin 8.1 gm/dL (13.0-17.0); Mean Corpuscular HGB Conc 34.1 % (32.0-36.0); Mean Corpuscular Hemoglobin 32.2 pg (27.0-34.0); Mean Corpuscular Volume 94.5 fL (80.0-100.0); Mean Platelet Volume 8.2 fL (7.0-11.0); Platelet Count 273 th/mm3 (150-450); Red Blood Count 2.52 mil/mm3 (4.50-5.90); Red Cell Distribution Width 15.5 % (11.6-17.2); White Blood Count 7.7 th/mm3 (4.0-11.0)
[2018-07-19 08:21] LABS: Anion Gap 6 meq/L (5-15); Blood Urea Nitrogen 12 mg/dL (7-18); Calcium 7.6 mg/dL (8.5-10.1); Carbon Dioxide 26.2 meq/L (21.0-32.0); Chloride 109 meq/L (98-107); Glomerular Filtration Rate Greater Than 89 mL/min (>89); Glucose,Random 103 mg/dL (74-106); Potassium 3.7 meq/L (3.5-5.1); Sodium 141 meq/L (136-145)
[2018-07-19] MEDS: Levothyroxine 125 MCG Tablet PO SCH (09:42)
[2018-07-19] MEDS: Metoprolol Tartrate 50 MG Tablet PO SCH (09:42)
--- NOTE | 2018-07-19 10:41 | P.PNIM ---
Subjective Interval history: Patient says he is feeling right. Denies any chest pain or shortness of breath. Denies any nausea or vomiting. No acute events as per nursing. Physical Exam Vital signs: Vital Signs 07/18/18 12:00 07/18/18 16:00 07/18/18 20:00 Temperature 97.7 F 97.4 F L 98.0 F Pulse Rate 62 63 83 Respiratory Rate 13 12 20 Blood Pressure 114/59 L 146/63 H 122/58 L Pulse Oximetry 99 98 99 07/19/18 00:00 07/19/18 04:00 07/19/18 08:00 Temperature 97.6 F 97.7 F 97.7 F Pulse Rate 60 68 69 Respiratory Rate 20 20 14 Blood Pressure 113/55 L 132/64 158/73 H Pulse Oximetry 97 97 98 Intake & Output 07/18/18 07/19/18 07/19/18 18:59 06:59 18:59 Intake Total 100 / 100 Output Total 850 / 850 375 / 375 700 / 700 Balance -750 / -750 -375 / -375 -700 / -700 Weight 65.8 kg Intake: IV 100 / 100 INVanz Inj 1,000 MG In NS Inj 100 / 100 100 ML @ 200 mls/hr IV.SIG Q24H [facility] Rx#:[id number] Output: Urine 375 / 375 700 / 700 Urine Amount (Catheter) 850 / 850 Suprapubic 850 / 850 Other: # Voids 1 Date of Last Bowel Movement 07/17/18 07/19/18 # Bowel Movements 1 1 Narrative: GENERAL: Patient sitting up in chair at bedside. Cooperative, oriented to month but not to year. SKIN: Warm and dry. HEAD: Normocephalic. EYES: No scleral icterus. No injection or drainage. NECK: Supple, trachea midline. No JVD. CARDIOVASCULAR: Regular rate and rhythm without murmurs, gallops, or rubs. RESPIRATORY: Breath sounds equal bilaterally. No accessory muscle use. GASTROINTESTINAL: Abdomen soft, non-tender, nondistended. Reviewed catheter site without any surrounding erythema or leakage. MUSCULOSKELETAL: No cyanosis, or edema. BACK: Nontender without obvious deformity. No CVA tenderness. - Urinary Catheter Management Suprapubic Cath placed during this visit: no Reason for continuing: Not indwelling catheter Results - Labs CBC & Chem 7: 07/19/18 06:33 07/19/18 06:33 Laboratory Results - last 24 hr 07/18/18 07/18/18 07/18/18 12:07 18:10 23:11 WBC RBC Hgb Hct MCV MCH MCHC RDW Plt Count MPV Sodium Potassium Chloride Carbon Dioxide Anion Gap BUN Creatinine Estimated GFR POC Glucose 124 H 190 H 153 H Random Glucose Calcium 07/19/18 07/19/18 07/19/18 06:33 06:33 08:00 WBC 7.7 RBC 2.52 L Hgb 8.1 L Hct 23.8 L MCV 94.5 MCH 32.2 MCHC 34.1 RDW 15.5 Plt Count 273 MPV 8.2 Sodium 141 Potassium 3.7 Chloride 109 H Carbon Dioxide 26.2 Anion Gap 6 BUN 12 Creatinine 0.64 Estimated GFR Greater than 89 POC Glucose 134 H Random Glucose 103 Calcium 7.6 L Microbiology 07/17/18 15:00 Catheterized Urine Urine Culture - Preliminary Immature growth - reincubate 07/13/18 09:55 Blood - Peripheral Aerobic Blood Culture - Final No growth in 5 days 07/13/18 09:55 Blood - Peripheral Anaerobic Blood Culture - Final No growth in 5 days 07/13/18 10:05 Blood - Peripheral Aerobic Blood Culture - Final No growth in 5 days 07/13/18 10:05 Blood - Peripheral Anaerobic Blood Culture - Final No growth in 5 days Assessment and Plan - Plan 78-year-old man admitted with acute symptomatic anemia secondary to GI bleed. Sepsis on admission secondary to complicated UTI related to suprapubic cath. Acute symptomatic anemia due to acute GI blood loss -Appreciate input from gastroenterology and s/p EGD 07/14/18 pending biopsy report. No active source of bleeding seen on EGD, large nonbleeding ulcer in the duodenal bulb -Continue Protonix, avoid NSAIDs, h/h holding steady Cleared for discharge from GI standpoint - Continue to follow bowel movements - Follow up H&H in AM. = 07/19. Hemoglobin 8.1. Relatively stable. Still some black tarry bowel movements. Continue PPI. Biopsy stomach without Helicobacter pylori. Will recheck tomorrow. Sepsis secondary to complicated UTI related to suprapubic catheter. Present on admission: ESBL + Pseudomonas UTI Metabolic encephalopathy - improved History of suprapubic catheter Appreciate input from ID. Repeat urine culture is pending -Invanz for ESBL, Levaquin for Pseudomonas per ID Await the urine culture result to determine whether he needs continued IV antibiotic. If the urine culture is negative, we can stop antibiotics. However will likely need a course of antibiotics. If the ESBL E. coli is cleared, we can give Levaquin on discharge for pseudomonas. = 07/19. Follow-up repeat culture of urine from 07/17. Continue IV antibiotics as per ID. Appreciate ID assistance. Suprapubic catheter exchange to be done upon discharge Hypothyroidism Hyperlipidemia Diabetes mellitus Continue levothyroxine Sliding scale insulin. SCDs Discussed Condition With: Patient, nurse, at bedside. Discharge Planning: Awaiting repeat urine culture results and ultimate rehab disposition
--- NOTE | 2018-07-19 14:44 | P.DS ---
Date of admission: 07/13/18 10:51 Primary care physician: UNKNOWN Brief History from admission: Mr. Lin is a pleasant 78-year-old male with a history of diabetes mellitus, hypothyroidism, hyperlipidemia and chronic Morfin catheter use who presents to the emergency department due to altered mental status, confusion, generalized weakness. Patient woke up this morning around 4:56 AM and was not behaving like his normal self. He was also very weak. He could not ambulate the way he does using a cane. He was also having trouble picking up simple items. He also had diarrhea for 2 days. Patient's noted very dark stool. ED workup indicated hemoglobin 3.7 on admission. White blood cell count 21.7K, BUN 76, creatinine 1.21. Head CT was unremarkable for any acute findings. Past medical history: Diabetes mellitus, hypothyroidism, hyperlipidemia, benign prostatic hyperplasia, chronic Morfin catheter use Past surgical history: 2 hernia surgery, knee surgery, prostate surgery Social history: Patient does not use any tobacco or alcohol. Family history: No family history of Alzheimer's, Parkinson's, cancer. DS: Summary Hospital Course: 78-year-old man admitted with acute symptomatic anemia secondary to GI bleed. Sepsis on admission secondary to complicated UTI related to suprapubic cath. Acute symptomatic anemia due to acute GI blood loss -Appreciate input from gastroenterology and s/p EGD 07/14/18 pending biopsy report. No active source of bleeding seen on EGD, large nonbleeding ulcer in the duodenal bulb -Continue Protonix, avoid NSAIDs, h/h holding steady Cleared for discharge from GI standpoint - Continue to follow bowel movements - Follow up H&H in AM. = 07/19. Hemoglobin 8.1. Relatively stable. Still some black tarry bowel movements. Continue PPI. Biopsy stomach without Helicobacter pylori. Will recheck tomorrow. Sepsis secondary to complicated UTI related to suprapubic catheter. Present on admission: ESBL + Pseudomonas UTI Metabolic encephalopathy - improved History of suprapubic catheter Appreciate input from ID. Repeat urine culture is pending -Invanz for ESBL, Levaquin for Pseudomonas per ID Await the urine culture result to determine whether he needs continued IV antibiotic. If the urine culture is negative, we can stop antibiotics. However will likely need a course of antibiotics. If the ESBL E. coli is cleared, we can give Levaquin on discharge for pseudomonas. = 07/19. Follow-up repeat culture of urine from 07/17. Continue IV antibiotics as per ID. Appreciate ID assistance. Suprapubic catheter exchange to be done upon discharge Hypothyroidism Hyperlipidemia Diabetes mellitus Continue levothyroxine Sliding scale insulin. SCDs Discussed Condition With: Patient, nurse, at bedside. Discharge Planning: Awaiting repeat urine culture results and ultimate rehab disposition - Time Spent with Patient Total time spent providing and/or coordinating discharge services: Greater than 30 minutes Exam Vital signs: Vital Signs 07/18/18 16:00 07/18/18 20:00 07/19/18 00:00 Temperature 97.4 F L 98.0 F 97.6 F Pulse Rate 63 83 60 Respiratory Rate 12 20 20 Blood Pressure 146/63 H 122/58 L 113/55 L Pulse Oximetry 98 99 97 07/19/18 04:00 07/19/18 08:00 07/19/18 12:00 Temperature 97.7 F 97.7 F 98.0 F Pulse Rate 68 69 64 Respiratory Rate 20 14 20 Blood Pressure 132/64 158/73 H 97/50 L Pulse Oximetry 97 98 100 Intake & Output 07/18/18 07/19/18 07/19/18 18:59 06:59 18:59 Intake Total 100 / 100 Output Total 850 / 850 375 / 375 700 / 700 Balance -750 / -750 -375 / -375 -700 / -700 Weight 65.8 kg Intake: IV 100 / 100 INVanz Inj 1,000 MG In NS Inj 100 / 100 100 ML @ 200 mls/hr IV.SIG Q24H [facility] Rx#:[id number] Output: Urine 375 / 375 700 / 700 Urine Amount (Catheter) 850 / 850 Suprapubic 850 / 850 Other: # Voids 1 Date of Last Bowel Movement 07/17/18 07/19/18 # Bowel Movements 1 1 Results Procedures completed during hospitalization: EGD which found gastric ulcer. Biopsies performed. Labs on day of discharge: Labs from last 24 hours 07/19/18 07/19/18 07/19/18 12:04 08:00 06:33 WBC RBC Hgb Hct MCV MCH MCHC RDW Plt Count MPV Sodium 141 Potassium 3.7 Chloride 109 H Carbon Dioxide 26.2 Anion Gap 6 BUN 12 Creatinine 0.64 Estimated GFR Greater than 89 POC Glucose 173 H 134 H Random Glucose 103 Calcium 7.6 L 07/19/18 07/18/18 07/18/18 06:33 23:11 18:10 WBC 7.7 RBC 2.52 L Hgb 8.1 L Hct 23.8 L MCV 94.5 MCH 32.2 MCHC 34.1 RDW 15.5 Plt Count 273 MPV 8.2 Sodium Potassium Chloride Carbon Dioxide Anion Gap BUN Creatinine Estimated GFR POC Glucose 153 H 190 H Random Glucose Calcium Preliminary micro results at discharge 07/17/18 15:00 Urine Culture - Preliminary Catheterized Urine Pseudomonas aeruginosa Yeast - ID to follow - Impressions ITS Impressions Head CT 07/13/18 09:37 CONCLUSION: 1. No acute intracranial abnormalities seen. 2. Widespread decreased density in the cerebral white matter likely from underlying small vessel ischemic demyelination. . Discharge Plan - Discharge Disposition Patient Disposition: [facility] Re[facility] Inpatient - Discharge Condition Condition: Serious - Discharge Order Discharge Orders: Discharge Order (Routine); Ordered 07/19/18 Ordered By: Deandre Robles - Discharge Details Anticipated Discharge Date: 07/19/18 Discharge Comment: Okay for discharge after suprapubic catheter is changed - Physicians Team Primary Care Provider: UNKNOWN, Attending Provider: Deandre Robles Other Providers: Gloria Herndon MD ; Bill Upton MD ; [facility],Agency
[2018-07-19] MEDS: levoFLOXacin 750 MG Tablet PO SCH (15:25)
[2018-07-19] MEDS ORDERED: Sodium Chloride 0.9% 2 ML Flush PRN IV.FLUSH (15:29)
[2018-07-19] MEDS ORDERED: Fluconazole 100 MG Tablet PO SCH (15:30)
[2018-07-19] MEDS: Insulin NovoLOG Aspart Correctional Sugar Inj SQ SCH ×3 (15:39→20:23)
--- NOTE | 2018-07-19 15:59 | P.PNID ---
Subjective Remarks: Patient has no complaints. Awake and alert. No fever. Repeat urine has kirk and pseudomonas aeruginosa. Past Medical History: PAST MEDICAL HISTORY: Diabetes mellitus, hypertension, hypercholesteremia, congestive heart failure, thyroid disease, suprapubic catheter. Allergies/Adverse Reactions: Allergies No Known Allergies Allergy (Verified 07/13/18 11:06) Objective Vital Signs 07/18/18 16:00 07/18/18 20:00 07/19/18 00:00 Temperature 97.4 F L 98.0 F 97.6 F Pulse Rate 63 83 60 Respiratory Rate 12 20 20 Blood Pressure 146/63 H 122/58 L 113/55 L Pulse Oximetry 98 99 97 07/19/18 04:00 07/19/18 08:00 07/19/18 12:00 Temperature 97.7 F 97.7 F 98.0 F Pulse Rate 68 69 64 Respiratory Rate 20 14 20 Blood Pressure 132/64 158/73 H 97/50 L Pulse Oximetry 97 98 100 Intake & Output 07/18/18 07/19/18 07/19/18 18:59 06:59 18:59 Intake Total 100 / 100 Output Total 850 / 850 375 / 375 700 / 700 Balance -750 / -750 -375 / -375 -700 / -700 Weight 65.8 kg Intake: IV 100 / 100 INVanz Inj 1,000 MG In NS Inj 100 / 100 100 ML @ 200 mls/hr IV.SIG Q24H [facility] Rx#:[id number] Output: Urine 375 / 375 700 / 700 Urine Amount (Catheter) 850 / 850 Suprapubic 850 / 850 Other: # Voids 1 Date of Last Bowel Movement 07/17/18 07/19/18 # Bowel Movements 1 1 07/17/18 15:00 Catheterized Urine Urine Culture - Preliminary Pseudomonas aeruginosa Yeast - ID to follow 07/13/18 09:55 Blood - Peripheral Aerobic Blood Culture - Final No growth in 5 days 07/13/18 09:55 Blood - Peripheral Anaerobic Blood Culture - Final No growth in 5 days 07/13/18 10:05 Blood - Peripheral Aerobic Blood Culture - Final No growth in 5 days 07/13/18 10:05 Blood - Peripheral Anaerobic Blood Culture - Final No growth in 5 days Lab - Hematology Results 07/19/18 06:33 WBC 7.7 RBC 2.52 L Hgb 8.1 L Hct 23.8 L MCV 94.5 MCH 32.2 MCHC 34.1 RDW 15.5 Plt Count 273 MPV 8.2 Lab - Chemistry Results 07/13/18 07/17/18 07/18/18 23:49 20:38 08:54 Sodium Potassium Chloride Carbon Dioxide Anion Gap BUN Creatinine Estimated GFR POC Glucose 206 H 122 H Random Glucose Calcium RBC Folate 458 07/18/18 07/18/18 07/18/18 12:07 18:10 23:11 Sodium Potassium Chloride Carbon Dioxide Anion Gap BUN Creatinine Estimated GFR POC Glucose 124 H 190 H 153 H Random Glucose Calcium RBC Folate 07/19/18 07/19/18 07/19/18 06:33 08:00 12:04 Sodium 141 Potassium 3.7 Chloride 109 H Carbon Dioxide 26.2 Anion Gap 6 BUN 12 Creatinine 0.64 Estimated GFR Greater than 89 POC Glucose 134 H 173 H Random Glucose 103 Calcium 7.6 L RBC Folate Imaging: ITS Impressions Head CT 07/13/18 09:37 CONCLUSION: 1. No acute intracranial abnormalities seen. 2. Widespread decreased density in the cerebral white matter likely from underlying small vessel ischemic demyelination. . Physical Exam: PHYSICAL EXAMINATION: GENERAL: No acute distress. HEENT: Head is atraumatic. Extraocular movements are grossly intact. Pupils reactive to light. No icterus. NECK: No adenopathy or swelling. LUNGS: Decreased breath sounds. HEART: Regular S1 and S2. No audible murmur. ABDOMEN: Bowel sounds present. Flat, soft, nontender. EXTREMITIES: No clubbing, cyanosis or edema. SKIN: No rash. NEUROLOGIC: Nonfocal. PSYCHIATRIC: Calm and cooperative. Assessment and Plan - Plan IMPRESSION: 1. Sepsis on admission. 2. Escherichia coli, extended-spectrum beta-lactamase positive urine culture. Patient has suprapubic catheter. 3. Leukocytosis, improving. 4. Altered mental status secondary to sepsis and urinary tract infection. Markedly improved. RECOMMENDATIONS: 1. Stop ertapenem. 2. Give Levaquin p.o. for Pseudomonas x 7 more days. 3. Give Diflucan p.o. 100 mg daily for 7 days. I will sign off now.
[2018-07-19] MEDS ORDERED: Sodium Chloride 0.9% 2 ML Flush BID IV.FLUSH SCH (21:00)
== END 2018-07-19 19:36 ==
LOC: NEPE 09:21 → NEDA 10:51 → HCIS 13:06 → N05 07-16 00:24
PROVIDERS: ADMIT Internal Medicine; ATTEND Internal Medicine
PROC: PANENDO (2018-07-14 13:10)